=== PATIENT | female | born 1955 | race Caucasian/White ===

== ENCOUNTER 2016-10-02 11:47 | Inpatient (IN) | payer OTHER ==
[~2016-10-02] VITALS: Ht 152.4 cm; Wt 64.6 kg
--- NOTE | ~2016-10-02 | PR ---
[place], [place] PROGRESS NOTE [id number] UN[facility] #: [id number] ROOM: 312 DOCTOR: JAY NERI MD BIRTHDATE: [birth year] DOS: 10/04/2016 CHIEF COMPLAINT: "I need something for sleep, I need my Xanax back." SUMMARY OF THE VISIT: The patient was interviewed in the dining area. She seems very loud and boisterous, very intrusive. She was fixated; however, not sleeping well last night and wanting something to help her sleep and also wanting some type of benzo back. She first requested Xanax and then later Klonopin. I did educate her on the use of benzo sedatives mixed with opiates in the high risk of morbidity and mortality from them and stated that I would not ever do this and that we would have to find alternatives. MENTAL STATUS: She is alert and oriented with some gaps. Mood does seem to be labile and inappropriate. There is a mixture of both some depressive symptoms as well as some manic symptoms, she is allowed and intrusive, there is no auditory or visual hallucinations. No delusions are voiced. No paranoia seems present. Memory has some mild gaps, but otherwise she is fully intact. PLAN: I will start her on Vistaril 50 mg 3 times daily for antianxiety purposes, also start her on Elavil 50 mg at bedtime as an antidepressant and also for something that will augment pain control. Her screening vitamin D level upon admission was subtherapeutic at 20, so I will start her on vitamin D 50,000 international units weekly. Given her lengthy history of polysubstance use. I will check a serum ammonia level to make certain that she is not sustained liver damage also check a phenobarb level. I am questioning whether or not we can simplify her overall drug regimen and discontinue her phenobarb and/or Lyrica. She takes a plethora of medications, many of which seem subtherapeutic and notes indicate that she does tend to doctor shop and pharmacy shop the more we can simplify things the better off, she will be. We will continue to engage her in individual and cortes milieu activity with the ultimate plan to return home when psychiatrically stable. JAY NERI MD CM:MEGAN [phone] JAY NERI MD 11/08/16 1507 interface
--- NOTE | ~2016-10-02 | PR ---
[place], [place] PROGRESS NOTE NAME: COLT GAITAN UNIT #: [id number] ROOM: 312 DOCTOR: JAY NERI MD BIRTHDATE: [birth year] DOS: 10/05/2016 ADDENDUM Above note reviewed. Agree with observations, recommendations, and overall treatment plan. JAY NERI MD CM:PNTRANS [id number] JAY NERI MD 11/26/16 1428 interface
--- NOTE | ~2016-10-02 | DS ---
[place], [place] DISCHARGE SUMMARY NAME: COLT GAITAN UNIT #: [id number] ROOM: 312 DOCTOR: MARBELLA BARRIGA NARAYAN BIRTHDATE: [birth year] DOS: 10/06/2016 HISTORY OF PRESENT ILLNESS: This is a 61-year-old female with past admissions to the Behavioral Health Unit presented to the Emergency Room complaining of suicidal ideation. She got into an argument with her and threatened to kill herself. Police were called. She threatened to kill herself by holding a knife to her abdomen and that she threatened to kill them. When she was here, she denied the whole thing. She has a history of bipolar. Initially stated that she was a patient of Dr. Hoang; however, she goes to [facility]. She was noncompliant with followup with Dr. Hoang's office. PAST MEDICAL HISTORY: Arthritis, hypertension, chronic pain, diabetes, scoliosis. MENTAL STATUS: She is alert and oriented to person, place, approximate time. Mood euthymic. Affect is appropriate. No auditory or visual hallucinations, delusions, paranoia, arabella or hypomania. Overall, memory is intact. The patient refused to sign herself in today. She completed her 72-hour hold, and she is asking to go home. Her only caveat was that she would stay longer, we will need to help out with pain, give her pain meds and the benzos. I advised her that I could not do that. HOSPITAL COURSE: We tried to clean up her medications as much as possible. I got rid of her benzos since she is on narcotics. Dr. Hoang got rid of her phenobarbital. We are trying to simplify her medications as much as possible. The patient was definitely drug seeking while she was here as far as narcotics and benzos. Since the patient does not want to sign herself in, we will be discharging her home with some medication adjustments. We reviewed them with her. She should follow up with her primary care provider [facility] followup. We are recommending that they not combine benzos with her narcotics since this is contributing to some of her issues as well. [place], [place] DISCHARGE SUMMARY NAME: COLT GAITAN UNIT #: [id number] ROOM: 312 DOCTOR: MARBELLA BARRIGA BIRTHDATE: [birth year] NARAYAN BARRIGA CNP CM:ROBERTA [phone] [id number] MARBELLA BARRIGA 10/06/16 0902 interface
--- NOTE | ~2016-10-02 | PR ---
[place], [place] PROGRESS NOTE NAME: COLT GAITAN UNIT #: [id number] ROOM: 312 DOCTOR: SEVERINO NOGUEIRA DO BIRTHDATE: [birth year] DOS: 10/05/2016 CHIEF COMPLAINT: "I slept better." SUMMARY OF VISIT: The patient was interviewed in the dining room while the patient was eating breakfast. The patient states that she did sleep a lot better; however, she continues to state that she still has some hip pain and buttock pain. MENTAL STATUS: The patient is alert, oriented with some gaps. Mood does seem to trend towards euthymia. There are no auditory or visual hallucinations. No delusions are voiced. No paranoia seems present. Memory has some mild gaps but otherwise fully intact. PLAN: We will increase the Elavil to 100 mg at night. We will discontinue phenobarbital. Levels are subtherapeutic at 6.1. We will also give Zostrix cream t.i.d. for current hip pain. We will continue to engage in individual and cortes activities with the ultimate plan to return home when psychiatrically stable. SEVERINO NOGUEIRA DO JAY NERI MD CM:MEGAN [id number] SEVERINO NOGUEIRA DO 10/05/16 1030 interface
--- NOTE | ~2016-10-02 | WRIGHTHP ---
[place], [place] PATIENT HISTORY AND PHYSICAL EXAM [id number] UNIT #: [id number] ROOM: 312 DOCTOR: MARBELLA BARRIGA BIRTHDATE: [birth year] DOS: 10/03/2016 HISTORY OF PRESENT ILLNESS: This is a 61-year-old female who has had past admissions to the Behavioral Health Unit that presented to the Emergency Room complaining of a suicidal ideation. Apparently, she got into an argument with her . The police were called, she threatened to kill herself and when the police arrived, they found her holding the knife to her abdomen. She was brought to the Emergency Room. She has got a history of bipolar disorder. She stated in the Emergency Room apparently that she sees Dr. Hoang, this is not true, she was noncompliant with her followups with our office. She currently sees, I believe, a nurse practitioner at the [facility]. PAST MEDICAL HISTORY: She has got arthritis, hypertension, diabetes and scoliosis. Diagnosis, acute exacerbation of bipolar depression and I also believe that there is some type of narcotic issues going on with her right now. MENTAL STATUS: She is alert and oriented to person, place, approximate time. Mood is appropriate. There is no arabella or hypomania. Affect is appropriate, but aggressive. She is very manipulative. She tried to get more pain meds out of me, she tried to tell me that her nurse practitioner at the counseling center has her on Klonopin, Ativan. When I questioned the interactions with the narcotics and the new regulations that were not to combine them, she was aware of this and stated that while my nurse practitioner knows I am on it, she suggested that I not take it, but she goes ahead and gives it to me. We did reach out to the pharmacy, who stated that she does not have an active script for Klonopin or Ativan. It should also be noted that the patient told the nurses that they would not have any problem with her as long as we gave her what she wanted. There is definitely a behavior component to this lady. PLAN: I am going to get the patient back on her Depakote, she stopped taking it. She says she prefers Prozac; however, Prozac is not part of her list of meds we got from the pharmacy. We will reach out to the counseling center tomorrow and have a conversation with them. She is on Trileptal, codeine, phenobarbital and Lyrica. I am not making any Ativan available to her or Klonopin. Benzos are contraindicated with her narcotics and as far as I can tell through the pharmacy records, she was not getting Klonopin, she may have some old scripts. It should also be noted that she came with a suitcase filled with like 27 bottles worth of medications. She does state that she will take the Prozac, but most of the time she does not take the Depakote. I am going to go ahead and keep her on Depakote, increase the dosage. I talked to her about it how I felt that it would help better with her bipolar, her mood swings, her depression, that I would put her on 250 mg t.i.d., get her therapeutic and then we can look at adjusting the dose if she becomes too somnolent. The patient on multiple occasions asked me to increase or give her more narcotics, I advised her no, I made it very clear that those medications would not be coming from me. We will go ahead and try to engage in individual and cortes milieu therapy. I do want to reach out and have a conversation with the counseling center tomorrow and get some clarifications as far as who are all is prescribing her [place], [place] PATIENT HISTORY AND PHYSICAL EXAM NAME: COLT GAITAN UNIT #: [id number] ROOM: 312 DOCTOR: MARBELLA BARRIGA BIRTHDATE: [birth year] medications, it looks like she has multiple doctors giving her meds between the counseling center, chiropractor, and primary care doctor. If the patient's pain is this bad, may be a pain clinic is her best choice and everybody else hands off, so that they can get the pain under control without dealing with some of the symptoms that I am seeing right now. We will continue to try to engage in individual and cortes milieu therapy. Plan to discharge once stable. NARAYAN BARRIGA CNP CM:HISPHYS:PATIENT HISTORY AND PHYSICAL EXAMINATION [phone] MARBELLA BARRIGA 10/03/16 1523 interface
[~2016-10-02 11:47] MED LIST: ACETAMINOPHEN &1 TA1 PO; AMBIEN5 MG PO; ANUCORT-HC25 MG RC; APA PO; ASPIRIN80 MG PO; ATARAX25 MG PO; BACTRIM DS 8001 TA1 PO; BENTYL10 MG PO; BENTYL20 MG PO; CALCIUM CARBON600 M2 PO; CARAFATE1 G1 PO; CARAFATE1 GM/10 ML PO; CLONAZEPAM0.5 M2 PO; CYCLOBENZAPRINE10 MG PO; DAYPRO600 M1 PO; DIVALPROEX SOD500 MG PO; DOXYCYCLINE100 M3 PO; EFFEXOR37.5 MG PO; EPIPEN JR 20.5 MG/ML MR; FIORICET 325 MG1 TAB PO; FLEXERIL10 MG PO; FLUOXETINE HYDR20 M1 PO; FLUOXETINE20 MG PO; GEODON40 MG PO; HYDROCODONE; HYDROCODONE BIT1 T11 PO; HYDROCODONE PO; IBUPROFEN600 MG PO; KLONOPIN WAFER0.5 MG PO; KLONOPIN0.5 MG PO; KLONOPIN2 MG PO; LEVOTHYROXIN0.025 MG PO; LITHIUM CARB300 MG PO; LOMOTIL 0.025 M1 TA1 PO; LORAZEPAM1 MG PO; MEDROL DOSEPAK4 MG PO; MIRTAZAPINE15 M2 PO; MOTRIN800 MG PO; MS CONTIN60 MG PO; NEURONTIN300 MG PO; NEXIUM40 MG PO; NORCO 325 MG-101 TAB PO; OXCARBAZEPINE600 MG PO; Ondansetron4 MG PO; PHENOBARBITAL60 MG PO; PREDNISONE5 MG PO; PRILOSEC20 M2 PO; PRILOSEC20 MG PO; PROZAC10 MG PO; RELAFEN500 MG PO; RESTORIL15 MG PO; TEMAZEPAM15 M1 PO; TRAMADOL HCL50 MG PO; TRAZADONE HYDR100 MG PO; TRAZODONE HCL50 MG PO; TRAZODONE100 MG PO; TRILEPTAL600 MG PO; TRILIPIX45 M1 PO; TYLENOL ES500 MG PO; TYLENOL W/ CODEI5 ML PO; TYLENOL W/CODEI1 TA2 PO; TYLENOL W/CODEI1 TA7 PO; TYLENOL325 M1 PO; ULTRAM50 MG PO; VALIUM5 MG PO; VISTARIL25 M1; VISTARIL25 M1 PO; VISTARIL25 MG PO; VITAMINS; ZANTAC 150150 MG PO; ZOFRAN ODT4 MG SL; ZOLPIDEM TARTRAT5 MG PO
[2016-10-02 11:52] VITALS: BP 118/68
[2016-10-02] MEDS ORDERED: Depakote250 MG PO ×2 (11:56→17:57)
[2016-10-02] MEDS ORDERED: DICYCLOMINE HCL20 MG PO (11:57)
[2016-10-02] MEDS ORDERED: AMITIZA24 MCG PO (11:58)
[2016-10-02] MEDS ORDERED: ASPIRIN81 M1 PO (12:01)
[2016-10-02] MEDS ORDERED: OXCARBAZEPINE600 MG PO (12:02)
[2016-10-02] MEDS ORDERED: PRENATAL1 TA3 PO (12:02)
[2016-10-02] MEDS ORDERED: IBUPROFEN600 MG PO (12:06)
[2016-10-02] MEDS ORDERED: Fioricet 325 MG1 TAB PO (12:07)
[2016-10-02 12:30] LABS: BASO # 0.1 10*3/uL (0.0-0.1); BASO % 0.8 % (0.0-1.0); EOS # 0.5 10*3/uL (0.0-0.4); EOS % 5.5 % (1.0-4.0); HEMATOCRIT 37.3 % (37.0-47.0); HEMOGLOBIN 12.2 g/dl (12.0-16.0); LYMPH # 3.2 10*3/uL (1.3-4.4); LYMPH % 36.3 % (27.0-41.0); MEAN CELL VOLUME 94.4 fl (81.0-99.0); MEAN CORPUSCULAR HGB 30.9 pg (27.0-31.0); MEAN CORPUSCULAR HGB CONC 32.7 g/dl (33.0-37.0); MEAN PLATELET VOLUME 9.3 fl (9.6-12.3); MONO # 0.7 10*3/uL (0.1-1.0); MONO % 8.5 % (3.0-9.0); NEUT # 4.2 10*3/uL (2.3-7.9); NEUT % 48.4 % (47.0-73.0); PLATELET COUNT AUTOMATED 279 10*3/uL (130-400); RED BLOOD COUNT 3.95 10*6/uL (4.10-5.10); RED CELL DISTRI WIDTH 12.9 % (0-14.5); WHITE BLOOD COUNT 8.8 10*3/uL (4.8-10.8)
[2016-10-02 12:45] LABS: URINE AMPHETAMINES < 1000 (1000ng/ml); URINE BARBITURATES > 200 (200ng/ml); URINE COCAINE < 300 (300ng/ml)
[2016-10-02 12:50] LABS: ALBUMIN 3.3 gm/dl (3.1-4.5); ALKALINE PHOSPHATASE 71 U/L (45-117); BILIRUBIN, DIRECT < 0.1 mg/dL (0.0-0.2); BILIRUBIN, TOTAL 0.2 mg/dl (0.2-1.0); BUN 22 mg/dl (7-24); CARBON DIOXIDE 28 mmol/L (21-32); CHLORIDE 108 mmol/L (98-107); EST GLOM FILT AFRICAN AMERICAN > 60 ml/min; GLUCOSE 90 mg/dL (65-99); POTASSIUM 4.4 mmol/L (3.5-5.1); SGOT/AST 11 IU/L (3-35); SGPT/ALT 17 U/L (12-78); SODIUM 142 mmol/L (136-145); TOTAL PROTEIN 6.4 gm/dL (6.4-8.2)
[2016-10-02] MEDS ORDERED: LYRICA50 M1 PO (17:48)
[2016-10-02] MEDS ORDERED: BENADRYL25 M2 PO (17:50)
[2016-10-02] MEDS ORDERED: RANITIDINE HCL300 M2 PO (17:51)
[2016-10-02] MEDS ORDERED: PHENOBARBITAL16.2 MG PO (17:52)
[2016-10-02] MEDS ORDERED: TYLENOL WITH CO1 TA1 PO (17:53)
[2016-10-02] MEDS ORDERED: GEODON20 MG IM (17:58)
[2016-10-02 18:25] VITALS: BP 117/70
[2016-10-02 19:39] VITALS: BP 110/62
[2016-10-02 19:50] LABS: HEMOGLOBIN A1c 5.5 % (4.8-5.6)
[2016-10-02 20:00] VITALS: BP 110/62
[2016-10-03 07:50] VITALS: BP 122/62
[2016-10-03 07:55] VITALS: BP 122/62
[2016-10-03 16:49] LABS: BILIRUBIN NEGATIVE (NEGATIVE); BLOOD NEGATIVE (NEGATIVE); CLARITY SL CLOUDY (CLEAR); COLOR YELLOW (YELLOW); GLUCOSE NEGATIVE (NEGATIVE); KETONE TRACE (NEGATIVE); LEUKO ESTERASE TRACE (NEGATIVE); NITRITE NEGATIVE (NEGATIVE); PH 5.5 (5.0-9.0); PROTEIN NEGATIVE (NEGATIVE)
[2016-10-03 16:57] LABS: BACTERIA 1+; URINE REFLEX COMMENT YES (NO)
[2016-10-03 19:41] VITALS: BP 133/71
[2016-10-03 20:00] VITALS: BP 133/71
[2016-10-04 08:13] VITALS: BP 119/55
[2016-10-04 08:45] VITALS: BP 119/55
[2016-10-04 20:00] VITALS: BP 112/58
[2016-10-04 20:07] VITALS: BP 112/58
[2016-10-05 07:45] VITALS: BP 118/62
[2016-10-05 08:00] VITALS: BP 118/62
[2016-10-05 20:00] VITALS: BP 104/62
[2016-10-06] MEDS ORDERED: ATARAX,VISTARIL50 MG PO (08:23)
[2016-10-06] MEDS ORDERED: AMITRIPTYLINE50 MG PO (08:23)
[2016-10-06] MEDS ORDERED: VITAMIN D50000 I3 PO (08:23)
[2016-10-06 08:26] VITALS: BP 103/61
== END 2016-10-06 16:00 | disposition home or self-care (01) | DRG 885 ==
LOC: ED 11:47 → 3N 16:20
PROVIDERS: Emergency Medicine; Psychiatry & Neurology Psychiatry
DX: F29 Unspecified psychosis not due to a substance or known physiological condition (principal); F33.3 Major depressive disorder, recurrent, severe with psychotic symptoms; G62.9 Polyneuropathy, unspecified; M41.9 Scoliosis, unspecified; E11.9 Type 2 diabetes mellitus without complications; G89.29 Other chronic pain; M54.30 Sciatica, unspecified side; E03.9 Hypothyroidism, unspecified; E55.9 Vitamin D deficiency, unspecified; R51 Headache; M19.90 Unspecified osteoarthritis, unspecified site; M79.2 Neuralgia and neuritis, unspecified

== ENCOUNTER 2017-03-30 07:04 | Inpatient (IN) | payer OTHER ==
[~2017-03-30] VITALS: Ht 152.4 cm; Wt 65.4 kg
[2017-03-30 07:04] VITALS: BP 132/84
[~2017-03-30 07:04] MED LIST changes: +AMITIZA24 MCG PO; +AMITRIPTYLINE50 MG PO; +ASPIRIN81 M1 PO; +ATARAX,VISTARIL50 MG PO; +BENADRYL25 M2 PO; +DICYCLOMINE HCL20 MG PO; +Depakote250 MG PO; +Fioricet 325 MG1 TAB PO; +GEODON20 MG IM; +LYRICA50 M1 PO; +PHENOBARBITAL16.2 MG PO; +PRENATAL1 TA3 PO; +RANITIDINE HCL300 M2 PO; +TYLENOL WITH CO1 TA1 PO; +VITAMIN D50000 I3 PO
[2017-03-30 07:56] LABS: BASO # 0.1 10*3/uL (0.0-0.1); BASO % 0.9 % (0.0-1.0); EOS # 0.5 10*3/uL (0.0-0.4); EOS % 8.7 % (1.0-4.0); HEMATOCRIT 38.9 % (37.0-47.0); HEMOGLOBIN 13.1 g/dl (12.0-16.0); LYMPH # 2.2 10*3/uL (1.3-4.4); LYMPH % 41.1 % (27.0-41.0); MEAN CELL VOLUME 89.2 fl (81.0-99.0); MEAN CORPUSCULAR HGB CONC 33.7 g/dl (33.0-37.0); MEAN PLATELET VOLUME 9.2 fl (9.6-12.3); MONO # 0.4 10*3/uL (0.1-1.0); MONO % 7.5 % (3.0-9.0); NEUT # 2.2 10*3/uL (2.3-7.9); NEUT % 41.2 % (47.0-73.0); PLATELET COUNT AUTOMATED 298 10*3/uL (130-400); RED BLOOD COUNT 4.36 10*6/uL (4.10-5.10); RED CELL DISTRI WIDTH 12.3 % (0-14.5); WHITE BLOOD COUNT 5.3 10*3/uL (4.8-10.8)
[2017-03-30 08:14] LABS: ALBUMIN 3.5 gm/dl (3.1-4.5); ALKALINE PHOSPHATASE 155 U/L (45-117); BILIRUBIN, TOTAL 0.2 mg/dl (0.2-1.0); BUN 19 mg/dl (7-24); C-REACTIVE PROTEIN 0.38 MG/DL (0-0.3); CARBON DIOXIDE 24 mmol/L (21-32); CHLORIDE 104 mmol/L (98-107); EST GLOM FILT AFRICAN AMERICAN > 60 ml/min; GLUCOSE 107 mg/dL (65-99); POTASSIUM 3.5 mmol/L (3.5-5.1); SGOT/AST 13 IU/L (3-35); SGPT/ALT 18 U/L (12-78); SODIUM 140 mmol/L (136-145); TOTAL PROTEIN 7.2 gm/dL (6.4-8.2)
[2017-03-30 08:16] LABS: TROPONIN I < 0.015 ng/ml (<0.045)
[2017-03-30 08:19] LABS: BILIRUBIN 1+ (NEGATIVE); BLOOD NEGATIVE (NEGATIVE); CLARITY SL CLOUDY (CLEAR); COLOR YELLOW (YELLOW); GLUCOSE NEGATIVE (NEGATIVE); KETONE 1+ (NEGATIVE); LEUKO ESTERASE NEGATIVE (NEGATIVE); NITRITE NEGATIVE (NEGATIVE); PROTEIN TRACE (NEGATIVE); SPECIFIC GRAVITY 1.025 (1.005-1.030); UROBILINOGEN 0.2 E.U./dl (0.2-1.0)
[2017-03-30 08:27] LABS: BACTERIA TRACE; RBC 0-2 rbc/hpf (0-2); WBC 0-2 wbc/hpf (0-5)
[2017-03-30 08:28] LABS: MUCOUS TRACE
[2017-03-30 08:29] LABS: URINE REFLEX COMMENT NO (NO)
[2017-03-30] MEDS ORDERED: RESTORIL15 MG PO (10:05)
[2017-03-30] MEDS ORDERED: Fioricet 325 MG1 TAB PO (10:05)
[2017-03-30 10:25] VITALS: BP 121/87
[2017-03-30] MEDS ORDERED: AMITIZA8 MCG PO (10:26)
[2017-03-30] MEDS ORDERED: DICYCLOMINE HCL20 MG PO (10:26)
[2017-03-30] MEDS ORDERED: OMEPRAZOLE40 MG PO (10:31)
[2017-03-30] MEDS ORDERED: PHENOBARBITAL32.4 M2 PO (10:32)
[2017-03-30] MEDS ORDERED: DIPHENOXYLATE/A1 TA1 PO (10:37)
[2017-03-30] MEDS ORDERED: LEVOTHYROXIN0.025 M1 PO (10:37)
[2017-03-30 12:00] VITALS: BP 157/73
[2017-03-30 16:00] VITALS: BP 152/83
[2017-03-30 20:00] VITALS: BP 159/72
[2017-03-31] VITALS: BP 114/63
[2017-03-31 06:43] LABS: BASO # 0.1 10*3/uL (0.0-0.1); BASO % 1.1 % (0.0-1.0); EOS # 0.2 10*3/uL (0.0-0.4); EOS % 5.2 % (1.0-4.0); HEMATOCRIT 33.6 % (37.0-47.0); LYMPH # 1.8 10*3/uL (1.3-4.4); LYMPH % 41.5 % (27.0-41.0); MEAN CELL VOLUME 90.8 fl (81.0-99.0); MEAN CORPUSCULAR HGB 29.5 pg (27.0-31.0); MEAN CORPUSCULAR HGB CONC 32.4 g/dl (33.0-37.0); MONO # 0.5 10*3/uL (0.1-1.0); MONO % 11.5 % (3.0-9.0); NEUT # 1.8 10*3/uL (2.3-7.9); NEUT % 40.2 % (47.0-73.0); PLATELET COUNT AUTOMATED 242 10*3/uL (130-400); RED CELL DISTRI WIDTH 12.4 % (0-14.5); WHITE BLOOD COUNT 4.4 10*3/uL (4.8-10.8)
[2017-03-31 06:49] LABS: HEMOGLOBIN 10.9 g/dl (12.0-16.0)
[2017-03-31 07:00] LABS: HEMOGLOBIN A1c 5.5 % (4.8-5.6)
[2017-03-31 07:18] LABS: ALBUMIN 2.9 gm/dl (3.1-4.5); BILIRUBIN, TOTAL 0.2 mg/dl (0.2-1.0); CARBON DIOXIDE 25 mmol/L (21-32); CHLORIDE 110 mmol/L (98-107); CHOLESTEROL 175 mg/dL (<200); EST GLOM FILT AFRICAN AMERICAN > 60 ml/min; GLUCOSE 105 mg/dL (65-99); MAGNESIUM 1.8 mg/dL (1.5-2.1); PHOSPHOROUS 1.8 mg/dL (2.5-4.9); POTASSIUM 3.4 mmol/L (3.5-5.1); SGOT/AST 8 IU/L (3-35); SGPT/ALT 14 U/L (12-78); SODIUM 143 mmol/L (136-145); TRIGLYCERIDES 157 mg/dl (<150); VLDL CHOLESTEROL 31 mg/dL (6-40)
[2017-03-31 07:24] LABS: ALKALINE PHOSPHATASE 121 U/L (45-117); HDL CHOLESTEROL 52 mg/dl (40-60); LDL CHOLESTEROL 92 mg/dL (9-159); THYROID STIM HORMONE (HS) 0.702 uIU/ml (0.358-4.75); TOTAL PROTEIN 5.9 gm/dL (6.4-8.2)
[2017-03-31 07:29] LABS: BUN 7 mg/dl (7-24)
[2017-03-31 07:48] LABS: FOLIC ACID 19.52 ng/mL (>5.38); VITAMIN D, 25-HYDROXY 75.8 ng/mL (30-100)
[2017-03-31 08:00] VITALS: BP 125/57
[2017-03-31 12:00] VITALS: BP 111/70
[2017-03-31 16:00] VITALS: BP 121/59
[2017-03-31 20:00] VITALS: BP 128/58
[2017-04-01] VITALS: BP 125/55
[2017-04-01 07:19] LABS: BUN 3 mg/dl (7-24); CARBON DIOXIDE 28 mmol/L (21-32); CHLORIDE 109 mmol/L (98-107); EST GLOM FILT AFRICAN AMERICAN > 60 ml/min; GLUCOSE 98 mg/dL (65-99); POTASSIUM 3.1 mmol/L (3.5-5.1); SODIUM 144 mmol/L (136-145)
[2017-04-01 08:00] VITALS: BP 116/60
[2017-04-01 12:00] VITALS: BP 126/55
[2017-04-01 16:00] VITALS: BP 114/47
[2017-04-01 20:00] VITALS: BP 129/59
[2017-04-02] VITALS: BP 132/66
[2017-04-02 06:46] LABS: BASO # 0.1 10*3/uL (0.0-0.1); BASO % 0.9 % (0.0-1.0); EOS # 0.3 10*3/uL (0.0-0.4); EOS % 4.9 % (1.0-4.0); HEMATOCRIT 32.7 % (37.0-47.0); HEMOGLOBIN 10.9 g/dl (12.0-16.0); LYMPH # 2.5 10*3/uL (1.3-4.4); LYMPH % 45.2 % (27.0-41.0); MEAN CELL VOLUME 90.6 fl (81.0-99.0); MEAN CORPUSCULAR HGB 30.2 pg (27.0-31.0); MEAN CORPUSCULAR HGB CONC 33.3 g/dl (33.0-37.0); MEAN PLATELET VOLUME 9.1 fl (9.6-12.3); MONO # 0.5 10*3/uL (0.1-1.0); MONO % 9.5 % (3.0-9.0); NEUT # 2.1 10*3/uL (2.3-7.9); PLATELET COUNT AUTOMATED 253 10*3/uL (130-400); RED BLOOD COUNT 3.61 10*6/uL (4.10-5.10); RED CELL DISTRI WIDTH 12.6 % (0-14.5); WHITE BLOOD COUNT 5.5 10*3/uL (4.8-10.8)
[2017-04-02 07:19] LABS: BUN 3 mg/dl (7-24); CARBON DIOXIDE 27 mmol/L (21-32); CHLORIDE 108 mmol/L (98-107); EST GLOM FILT AFRICAN AMERICAN > 60 ml/min; GLUCOSE 100 mg/dL (65-99); POTASSIUM 3.6 mmol/L (3.5-5.1); SODIUM 142 mmol/L (136-145)
[2017-04-02 08:00] VITALS: BP 134/64
[2017-04-02 12:00] VITALS: BP 115/53
[2017-04-02 16:00] VITALS: BP 135/73
[2017-04-02 20:00] VITALS: BP 137/81
[2017-04-03] VITALS: BP 130/64; BP 135/80
[2017-04-03 04:00] VITALS: BP 130/64
[2017-04-03 06:33] LABS: BASO # 0.1 10*3/uL (0.0-0.1); BASO % 0.9 % (0.0-1.0); EOS # 0.3 10*3/uL (0.0-0.4); EOS % 4.2 % (1.0-4.0); HEMATOCRIT 34.8 % (37.0-47.0); HEMOGLOBIN 11.6 g/dl (12.0-16.0); LYMPH # 2.5 10*3/uL (1.3-4.4); LYMPH % 36.6 % (27.0-41.0); MEAN CORPUSCULAR HGB 29.7 pg (27.0-31.0); MEAN CORPUSCULAR HGB CONC 33.3 g/dl (33.0-37.0); MEAN PLATELET VOLUME 9.6 fl (9.6-12.3); MONO # 0.7 10*3/uL (0.1-1.0); MONO % 10.4 % (3.0-9.0); NEUT # 3.3 10*3/uL (2.3-7.9); NEUT % 47.6 % (47.0-73.0); PLATELET COUNT AUTOMATED 280 10*3/uL (130-400); RED BLOOD COUNT 3.91 10*6/uL (4.10-5.10); RED CELL DISTRI WIDTH 12.7 % (0-14.5); WHITE BLOOD COUNT 6.9 10*3/uL (4.8-10.8)
[2017-04-03 07:00] LABS: ALKALINE PHOSPHATASE 132 U/L (45-117); BILIRUBIN, TOTAL 0.2 mg/dl (0.2-1.0); BUN 3 mg/dl (7-24); CARBON DIOXIDE 29 mmol/L (21-32); CHLORIDE 107 mmol/L (98-107); EST GLOM FILT AFRICAN AMERICAN > 60 ml/min; GLUCOSE 102 mg/dL (65-99); POTASSIUM 3.3 mmol/L (3.5-5.1); SGOT/AST 14 IU/L (3-35); SGPT/ALT 22 U/L (12-78); SODIUM 143 mmol/L (136-145); TOTAL PROTEIN 6.5 gm/dL (6.4-8.2)
[2017-04-03 08:00] VITALS: BP 136/78
[2017-04-03] MEDS ORDERED: MILK OF MA400 MG/51 PO (10:43)
== END 2017-04-03 11:07 | disposition home or self-care (01) | DRG 392 ==
LOC: ED 07:04 → 5E 09:29 → EDHOLD 09:29 → 5E 10:01
PROVIDERS: Family Medicine; Hospitalist; Internal Medicine; Student in an Organized Health Care Education/Training Program
DX: A08.4 Viral intestinal infection, unspecified (principal); E44.0 Moderate protein-calorie malnutrition; F50.2 Bulimia nervosa; E87.8 Other disorders of electrolyte and fluid balance, not elsewhere classified; G62.9 Polyneuropathy, unspecified; M41.9 Scoliosis, unspecified; E83.39 Other disorders of phosphorus metabolism; K25.7 Chronic gastric ulcer without hemorrhage or perforation; M54.31 Sciatica, right side; M51.27 Other intervertebral disc displacement, lumbosacral region; F90.9 Attention-deficit hyperactivity disorder, unspecified type; K64.9 Unspecified hemorrhoids; R31.9 Hematuria, unspecified; G40.909 Epilepsy, unspecified, not intractable, without status epilepticus; E87.6 Hypokalemia; E86.0 Dehydration; K22.70 Barrett's esophagus without dysplasia; K44.9 Diaphragmatic hernia without obstruction or gangrene; R82.4 Acetonuria; E03.9 Hypothyroidism, unspecified; G89.29 Other chronic pain; M19.90 Unspecified osteoarthritis, unspecified site; F31.9 Bipolar disorder, unspecified; F60.3 Borderline personality disorder; F41.9 Anxiety disorder, unspecified; F17.210 Nicotine dependence, cigarettes, uncomplicated; D64.9 Anemia, unspecified; K59.00 Constipation, unspecified; Z98.49 Cataract extraction status, unspecified eye; Z80.51 Family history of malignant neoplasm of kidney; Z88.0 Allergy status to penicillin; Z88.8 Allergy status to other drugs, medicaments and biological substances; Z91.030 Bee allergy status; Z79.1 Long term (current) use of non-steroidal anti-inflammatories (NSAID); Z79.899 Other long term (current) drug therapy; Z79.82 Long term (current) use of aspirin; Z68.28 Body mass index [BMI] 28.0-28.9, adult

== ENCOUNTER → 2017-04-26 | Emergency (ER) | payer OTHER ==
[~2017-04-26] VITALS: Ht 165.1 cm; Wt 65.8 kg
[~2017-04-26] MED LIST changes: +AMITIZA8 MCG PO; +DIPHENOXYLATE/A1 TA1 PO; +LEVOTHYROXIN0.025 M1 PO; +MILK OF MA400 MG/51 PO; +OMEPRAZOLE40 MG PO; +PHENOBARBITAL32.4 M2 PO
[2017-04-26 09:54] LABS: BASO # 0.1 10*3/uL (0.0-0.1); BASO % 0.9 % (0.0-1.0); EOS # 0.2 10*3/uL (0.0-0.4); EOS % 2.6 % (1.0-4.0); HEMATOCRIT 41.2 % (37.0-47.0); HEMOGLOBIN 13.7 g/dl (12.0-16.0); LYMPH % 40.1 % (27.0-41.0); MEAN CORPUSCULAR HGB 29.9 pg (27.0-31.0); MEAN CORPUSCULAR HGB CONC 33.3 g/dl (33.0-37.0); MEAN PLATELET VOLUME 9.6 fl (9.6-12.3); MONO # 0.6 10*3/uL (0.1-1.0); MONO % 7.4 % (3.0-9.0); NEUT # 3.6 10*3/uL (2.3-7.9); NEUT % 48.5 % (47.0-73.0); PLATELET COUNT AUTOMATED 311 10*3/uL (130-400); RED BLOOD COUNT 4.58 10*6/uL (4.10-5.10); RED CELL DISTRI WIDTH 12.8 % (0-14.5); WHITE BLOOD COUNT 7.4 10*3/uL (4.8-10.8)
[2017-04-26 10:09] LABS: ALBUMIN 3.9 gm/dl (3.1-4.5); ALKALINE PHOSPHATASE 141 U/L (45-117); BILIRUBIN, TOTAL 0.3 mg/dl (0.2-1.0); BUN 23 mg/dl (7-24); CARBON DIOXIDE 22 mmol/L (21-32); CHLORIDE 105 mmol/L (98-107); EST GLOM FILT AFRICAN AMERICAN > 60 ml/min; GLUCOSE 84 mg/dL (65-99); POTASSIUM 3.9 mmol/L (3.5-5.1); SGOT/AST 11 IU/L (3-35); SGPT/ALT 16 U/L (12-78); SODIUM 139 mmol/L (136-145); TOTAL PROTEIN 7.6 gm/dL (6.4-8.2)
[2017-04-26 10:44] LABS: BILIRUBIN 2+ (NEGATIVE); BLOOD NEGATIVE (NEGATIVE); CLARITY CLEAR (CLEAR); COLOR YELLOW (YELLOW); GLUCOSE NEGATIVE (NEGATIVE); KETONE 3+ (NEGATIVE); LEUKO ESTERASE NEGATIVE (NEGATIVE); NITRITE NEGATIVE (NEGATIVE); PROTEIN 2+ (NEGATIVE); SPECIFIC GRAVITY >= 1.030 (1.005-1.030)
[2017-04-26 10:52] LABS: URINE REFLEX COMMENT NO (NO)
== END ==
LOC: ED 09:31
PROVIDERS: Nurse Practitioner Family
DX: F31.9 Bipolar disorder, unspecified (principal); R11.2 Nausea with vomiting, unspecified; R10.13 Epigastric pain; R19.7 Diarrhea, unspecified; F17.210 Nicotine dependence, cigarettes, uncomplicated; Z91.030 Bee allergy status; Z88.0 Allergy status to penicillin; Z88.8 Allergy status to other drugs, medicaments and biological substances; Z79.899 Other long term (current) drug therapy; Z79.82 Long term (current) use of aspirin

== ENCOUNTER 2017-05-27 10:42 | Inpatient (IN) | payer OTHER ==
[~2017-05-27] VITALS: Ht 154.9 cm; Wt 61.2 kg
--- NOTE | ~2017-05-27 | DS ---
[place], [place] DISCHARGE SUMMARY NAME: COLT GAITAN [facility] #: [id number] UNIT #: [id number] ROOM: 314 DOCTOR: JAY NERI MD BIRTHDATE: [birth year] DOS: 05/30/2017 CHIEF COMPLAINT: "I am not really suicidal." HISTORY OF PRESENT ILLNESS: This is a 61-year-old white female who is well known to the [facility]. The patient presented to the emergency room at [facility] with the complaint of abdominal pain. She had gone to another emergency room hospital and was worked up for the pain and no cause for the pain or need for admission was found. She then came to [place] with the same complaint on the advice of a friend. Acute abdominal series was negative. She was then told that she was not going to be admitted and at that point in time and only after that, she states that she wanted to kill herself. She became angry and agitated while in the emergency room. She refused to give a urine sample and was threatening to leave and ultimately was pink slipped then by the emergency room physicians. After talking to the nurse practitioner in the emergency room, she did agree to give urine and was found to have 1+ bacteria and also tested positive for opiates, barbiturates and benzos. She was admitted to the [facility] to evaluate further organically and also to assess lethality. PAST MEDICAL HISTORY: Remarkable for allergies to BEE STINGS, PENICILLIN, COMPAZINE and PROPRANOLOL. SUMMARY OF HOSPITAL COURSE: The patient was admitted to the unit where immediately she began to demand being discharged. Her phoned frequently and demanded that she be discharged. Nurses continue to evaluate daily her level of depression and did not find any symptoms suggestive of depression nor did they find consistent thoughts of wanting to hurt herself or others. The patient convincingly throughout that time stated that she only said that because she was angry and voiced positive plans for the future and a desire to return home. On the day that I evaluated her, she reported that she was feeling good, was anxious to go back to counseling with Steph and also see Zena Morales. She was discharged then back home on . MENTAL STATUS AT DISCHARGE: The patient is alert and oriented to person, place, and time. Mood is euthymic. Affect appropriate. There are no symptoms of hypomania or arabella. There are no overt auditory or visual hallucinations. No delusions, no paranoia. There is no suicidality, homicidality or self-injurious thoughts voiced. Memory is intact. FINAL DIAGNOSES: Bipolar type 2 and borderline personality disorder. PLAN: The patient is discharged. Her aftercare has already been set up per her report. We will verify this and finalize. No scripts were sent as patient should have prescriptions from her outpatient provider present. [place], [place] DISCHARGE SUMMARY NAME: COLT GAITAN UNIT #: [id number] ROOM: [facility] DOCTOR: JAY NERI MD BIRTHDATE: [birth year] JAY NERI MD CM:DISCHARG [id number] JAY NERI MD 05/30/17 1627 interface
[2017-05-27 11:03] VITALS: BP 132/70
[2017-05-27 11:14] LABS: BASO # 0.1 10*3/uL (0.0-0.1); BASO % 0.8 % (0.0-1.0); EOS # 0.4 10*3/uL (0.0-0.4); EOS % 5.7 % (1.0-4.0); HEMATOCRIT 38.7 % (37.0-47.0); HEMOGLOBIN 12.8 g/dl (12.0-16.0); LYMPH % 45.9 % (27.0-41.0); MEAN CELL VOLUME 90.2 fl (81.0-99.0); MEAN CORPUSCULAR HGB 29.8 pg (27.0-31.0); MEAN CORPUSCULAR HGB CONC 33.1 g/dl (33.0-37.0); MEAN PLATELET VOLUME 9.4 fl (9.6-12.3); MONO # 0.6 10*3/uL (0.1-1.0); MONO % 8.9 % (3.0-9.0); NEUT # 2.5 10*3/uL (2.3-7.9); NEUT % 38.2 % (47.0-73.0); PLATELET COUNT AUTOMATED 243 10*3/uL (130-400); RED BLOOD COUNT 4.29 10*6/uL (4.10-5.10); WHITE BLOOD COUNT 6.5 10*3/uL (4.8-10.8)
[2017-05-27 11:24] LABS: ACT PARTIAL THROMBO TIME 25.7 SECONDS (20.8-31.5)
[2017-05-27 11:29] LABS: ALBUMIN 3.3 gm/dl (3.1-4.5); ALKALINE PHOSPHATASE 156 U/L (45-117); BUN 14 mg/dl (7-24); CHLORIDE 106 mmol/L (98-107); CREATININE 0.73 mg/dL (0.55-1.02); MAGNESIUM 1.7 mg/dL (1.5-2.1); POTASSIUM 3.4 mmol/L (3.5-5.1); SGOT/AST 12 IU/L (3-35); SGPT/ALT 17 U/L (12-78); SODIUM 138 mmol/L (136-145); TOTAL PROTEIN 7.1 gm/dL (6.4-8.2)
[2017-05-27 11:30] LABS: TROPONIN I < 0.015 ng/ml (<0.045)
--- NOTE | 2017-05-27 12:05 | NUR ---
PT IN ROOM UPSET AND CRYING. PT TELLS ME THAT SHE WANTS TO LEAVE. SHE ALSO TELLS MYSELF AND [place] GONCALVES-TECHNICAL PROPOSAL WRITER THAT SINCE WE CANT HELP HER AND CAN'T FIND ANYTHING WRONG WITH HER THAT SHE IS GOING TO KILL HERSELF. I INFORMED HER THAT SINCE SHE IS FEELING SUICIDAL AT THIS TIME THAT I CAN NOT LET HER LEAVE. PT DEMANDING TO LEAVE AND SIGN HERSELF OUT. I LEAVE THE ROOM AND PT CALLS HER DOCTOR FARRUKH MCKINNEY ON THE PHONE. PT REFUSES EXHIBITION ORGANISER AND ALSO REFUSES IV FLUIDS TO BE RE-CONNECTED. PT REMAINS TEARFUL AND UPSET IN ROOM, MAKING SEVERAL PHONE CALLS.
[2017-05-27 12:40] LABS: ACETAMINOPHEN (TYLENOL) 2.7 ug/ml (10-30)
[2017-05-27 12:46] LABS: ETHYL ALCOHOL < 3.0 mg/dl (<3)
--- NOTE | 2017-05-27 12:56 | NUR ---
PT IN ROOM, SHUTS DOOR AND IS DRESSED IN HER STREET CLOTHES. SHE TELLS ME THAT SHE IS LEAVING AND GOING HOME. I TOLD HER THAT SHE CAN'T GO HOME BECAUSE SHE IS THREATENING TO KILL HERSELF. SHE SAYS TO ME "I DON'T REALLY FEEL THAT WAS I WAS JUST TELLING A LIE" I INFORM PATIENT THAT WE NEED A URINE SAMPLE BEFORE WE CAN CONTACT DR. NERI. SHE REFUSES THIS INITIALLY AND SAYS THAT SHE WILL CALL HE BROTHER WHO IS A SECURITY ASSESSOR. SHE CALLS THE STAFF HERE IDIOTS. AFTER SPEAKING WITH DIRECTOR OF ER PATIENT IS MORE CALM AND COOPERATIVE... AMBULATORY TO BATHROOM TO PROVIDE SPECIMEN.
--- NOTE | 2017-05-27 13:18 | NUR ---
URINE SENT. PT MEDICATED PER EMAR FOR PAIN AND ANXIETY.
--- NOTE | 2017-05-27 13:30 | NUR ---
PT IN ROOM TRYING TO MAKE HERSELF VOMIT.
[2017-05-27 13:31] LABS: BILIRUBIN 1+ (NEGATIVE); BLOOD NEGATIVE (NEGATIVE); CLARITY CLOUDY (CLEAR); COLOR YELLOW (YELLOW); GLUCOSE NEGATIVE (NEGATIVE); KETONE TRACE (NEGATIVE); LEUKO ESTERASE NEGATIVE (NEGATIVE); NITRITE NEGATIVE (NEGATIVE); PH 5.5 (5.0-9.0); SPECIFIC GRAVITY >= 1.030 (1.005-1.030); UROBILINOGEN 0.2 E.U./dl (0.2-1.0)
[2017-05-27 13:38] LABS: URINE AMPHETAMINES < 1000 (1000ng/ml); URINE BARBITURATES > 200 (200ng/ml); URINE BENZODIAZEPINES > 200 (200ng/ml); URINE CANNABINOIDS (THC) < 50 (50ng/ml); URINE COCAINE < 300 (300ng/ml); URINE METHADONE < 300 (300ng/ml); URINE OPIATES > 300 (300ng/ml)
[2017-05-27 13:40] LABS: URINE PHENCYCLIDINE < 25 (25ng/ml)
[2017-05-27 13:43] LABS: BACTERIA 1+; EPITHELIAL CELLS 15-20; MUCOUS 1+
--- NOTE | 2017-05-27 13:51 | NUR ---
PT RESTING IN BED. APPEARS MUCH MORE CALM. AWAITING FINAL DISPOSITION FROM [facility].
--- NOTE | 2017-05-27 14:30 | NUR ---
PT SLEEPING IN BED. COMFORTABLE AND IN NO DISTRESS. HOLDING ORDERS ON MEDICATIONS PATIENT IS COMFORTABLE AND SLEEPING. [employer] BRANCH MANAGER AWARE. AWAITING Y ADMITTANCE.
[2017-05-27 15:14] VITALS: BP 149/68
--- NOTE | 2017-05-27 15:19 | NUR ---
PT BECOMING MORE AGITATED. [facility]HU CONTACTED
[2017-05-27 18:10] VITALS: BP 116/97
--- NOTE | 2017-05-27 18:13 | NUR ---
SPOKE WITH PHARMACIST AT [facility] VIA TELEPHONE REQUESTING INFORMATION ON MOST RECENT MEDICATIONS. THIS RN WAS PROVIDED WITH A LIST OF HOME MEDICATIONS AND WILL BE UPDATING MEDICATION REC WITH INFORMATION.
[2017-05-27] MEDS ORDERED: CYCLOBENZAPRINE5 M3 PO (18:25)
[2017-05-27] MEDS ORDERED: BENADRYL25 M2 PO (18:27)
--- NOTE | 2017-05-27 18:38 | NUR ---
DR. SOSA MADE AWARE OF CONSULT FOR MEDICAL MANAGEMENT VIA TELEPHONE.
--- NOTE | 2017-05-27 18:52 | NUR ---
PT ADMITTED TO UNIT FROM [facility] WITH REPORTEDLY SUICIDAL IDEATIONS. ADMISSION ORDERS RECIEVED BY [facility]. PATIENT IS AN INVOLUNTARY ADMISSION.
--- NOTE | 2017-05-27 19:58 | NUR ---
RECEIVED MESSAGE FROM MARINE MAMMAL TRAINER REGARDING CALLING AND REQUESTING A CALL FROM THE NURSE. THIS NURSE RETURNED CALL TO AND ASSURED PT'S THE DR HAS BEEN NOTIFIED THE PT IS HERE AND WE ARE WAITING UNTIL THE DR IS HERE TO ASSESS PT BEFORE HE WILL ORDER MEDICATIONS. ONCE MEDICATIONS HAVE BEEN ORDERED PHARMACY WILL BRING THEM TO US AND THEY WILL BE ADMINISTERED TO PT. UNTIL THAT TIME WE HAVE TO FOLLOW ADMISSION PROTOCOL. PT'S UNDERSTOOD THE PROTOCOL AND SHOWED CONCERN REGARDING THE PT GETTING HER SEIZURE MEDICATION AND STATED IF SHE FALLS AND HITS HER HEAD HE WILL HAVE A LAWSUIT AGAINST THE HOSPITAL. REASSURED PT SHE WILL GET MEDICATION WHEN WE ARE ABLE TO GIVE IT TO HER. PT VERBALIZED UNDERSTANDING OF ALL THE ABOVE.
[2017-05-27 20:00] VITALS: BP 117/68
--- NOTE | 2017-05-27 20:40 | NUR ---
PT PACING HALLS YELLING AT STAFF AND PEERS "I'M GOING TO HAVE A SEIZURE, I'M GOING TO THROW MYSELF ON THE GROUND AND SPLIT MY HEAD OPEN AND MIRIAM YOU ALL, THERES GOING TO BE A LAW SUIT IN THE MORNING". PT THEN BEGAN RUNNING DOWN THE VERA YELLING "I'M NOT AND ANIMAL, YOU CANT TREAT ME LIKE SOME LOWLY BEING". PT INFORMED THAT SHE WOULD BE GETTING HER MEDICATIONS SOON POSSIBLE AND THAT RUNNING IS NOT ALLOWED IN THE HALLS. PT GIVEN THE OPPORTUNITY TO [place] PRN ATIVAN PO ADMINISTERED
--- NOTE | 2017-05-27 21:04 | NUR ---
DR. FERREIRA MADE AWARE OF ADMISSION WITH CONSULT FOR MEDICAL MANAGEMENT WITH UPDATED MED REQ
--- NOTE | 2017-05-27 21:40 | NUR ---
PRN ATIVAN SEMI EFFECTIVE. PT HAS STARTED TO CALM DOWN HOWEVER IS OBSEESSIVE ABOUT HER MEDICATIONS. REASSURED PT ONCE THE DR OK'S HER MEDICATION SHE WILL GET IT. WILL CONTINUE TO MONITOR PT FOR EFFECTIVENESS OF MEDICATION.
--- NOTE | 2017-05-27 21:47 | NUR ---
DR MARYELLEN FOOTE ON UNIT TO ASSESS PT. UPDATED ON PT CONDITION.
[2017-05-27 23:24] VITALS: BP 117/68
--- NOTE | 2017-05-28 05:26 | NUR ---
PT CAME TO NURSES STATION AND HAD A C/O BEING NAUSEOUS. PT REQUESTED ZOFRAN FOR NASUEA. PRN ZOFRAN GIVEN AT THIS TIME PER ORDER. WILL MONITOR EFFECTIVENESS OF MEDICATION.
--- NOTE | 2017-05-28 06:44 | NUR ---
PT SLEPT GREATER THAN 6 HOURS. NO S/S OF DISTRESS NOTED. NO C/O PAIN. PT STATED HER ZOFRAN FOR NAUSEA WAS EFFECTIVE. Q15 MINUTE SAFETY CHECKS MAINTAINED. SEE [facility] FLOWS[facility]ET FOR SPECIFIC MONITORING. NO FURTHER BEHAVIORS NOTED THROUGHOUT THE NIGHT AND THIS AM
[2017-05-28 07:00] LABS: THYROID STIM HORMONE (HS) 1.76 uIU/ml (0.358-4.75)
[2017-05-28 07:46] LABS: VITAMIN D, 25-HYDROXY 94.8 ng/mL (30-100)
[2017-05-28 07:56] VITALS: BP 123/63
--- NOTE | 2017-05-28 11:45 | NUR ---
DR MANCIA UP TO SEE PATIENTS, NOTIFIED OF LABS
--- NOTE | 2017-05-28 11:49 | NUR ---
24 HR chart check completed.
--- NOTE | 2017-05-28 14:16 | NUR ---
PT RECIEVED PRN CODEINE FOR 10/10 MID STERNAL PAIN
[2017-05-28] MEDS ORDERED: PREDNISOLONE ACE5 ML OD (16:16)
--- NOTE | 2017-05-28 17:58 | NUR ---
PT C/O NAUSEA ASKED FOR ZOPHRAN
--- NOTE | 2017-05-28 18:05 | NUR ---
ALERT AND ORIENTD X4, PLEASANT, MANIC, SOMATIC, MED SEEKING , PAIN HAS DECREASED, CODEIN WAS EFFECTIVE, DENIES SI.HI, DENIES ALL PSYCHOSIS, UP AND STEADY, CONTINENT, MED COMPLIANT, CAN BE INTRUSIVE, BUT REDIRECETABLE, PT IS STILL MANIC, WILL CONTINUE TO MONITOR BAHAVIORS AND FOLLOW TREATMENT PLAN
[2017-05-28 20:20] VITALS: BP 122/67
--- NOTE | 2017-05-29 04:25 | NUR ---
PT CAME TO THE NURSES STATION AND REQUESTED CODEINE FOR PAIN. PT STATED SHE HAD 10/10 BACK PAIN RADIATING ACROSS HER BACK. PRN TYLENOL WITH CODEINE GIVEN PER ORDER. WILL MONITOR PT FOR EFFECTIVENESS OF MEDICATION.
--- NOTE | 2017-05-29 05:15 | NUR ---
PRN TYLENOL WITH CODEINE EFFECTIVE. PT RESTING IN BED WITH EYES CLOSED AND NO S/S OF PAIN NOTED. WILL CONTINUE TO MONITOR EFFECTIVENESS OF MEDICATION.
--- NOTE | 2017-05-29 06:00 | NUR ---
PT SLEPT APPROXIMATELY 8 HOURS THIS SHIFT. NO S/S OF DISTRESS NOTED. PT HAD A MUCH BETTER NIGHT. WAS JOKING AROUND WITH STAFF AND PEERS. APOLOGIZED TO EVERYONE FOR HER BEHAVIOR ON THE NIGHT BEFORE. NO OTHER C/O PAIN AT THIS TIME. SEE [facility] FLOWSHEET FOR SPECIFIC MONITORING. Q 15 MINUTE SAFETY CHECKS MAINTAINED.
--- NOTE | 2017-05-29 06:13 | NUR ---
24 HR chart check completed.
[2017-05-29 08:04] VITALS: BP 145/73
--- NOTE | 2017-05-29 16:40 | NUR ---
alert x4, less manic, social with staff and peers, denies si/hi, all psychosis, incontrol, still med seeking with pain pills, somatic , attends groups and participates , continent, up and steady, will continue to follow treatment plan
[2017-05-29 20:49] VITALS: BP 140/88
--- NOTE | 2017-05-29 21:40 | NUR ---
PT REQUESTED & MEDICATED WITH CODEINE 30 MG @ 2135 FOR C/O CHRONIC MID BACK & NECK PAIN. RATED PAIN 8.
--- NOTE | 2017-05-29 22:59 | NUR ---
24 HR chart check completed.
--- NOTE | 2017-05-30 06:08 | NUR ---
CODEINE WAS EFFECTIVE & PT HAS SLEPT QUIETLY THROUGHOUT THE SHIFT PAST 2214.
--- NOTE | 2017-05-30 06:44 | NUR ---
PT REQUESTED & MEDICATED WITH CODEINE 30 MG & TYLENOL 325 MG aT 0642 FOR C/O CHRONIC MID BACK & NECK PAIN. RATED PAIN 9/10.
--- NOTE | 2017-05-30 07:56 | NUR ---
CALLED THIS AM AT 0734, PER THIS NURSE ARTUR ADVISED THAT WE DO NOT TAKE CALLS THIS EARLY IN THE MORNING, CALLS ARE ACCEPTED BETWEEN 9AM AND 9PM. MANNIE SIDDIQUI SPEAKING ON THE PHONE, STATED "SO YOU'RE TELLING ME I CAN'T EVEN TALK TO MY , ARTUR ADVISED THAT WE ACCPET CALLS BETWEEN 9AM AND 9PM. BEGAN YELLING "WELL I'LL JUST COME DOWN THERE AND MAKE A BIG SCENE." SECURITY,KELSEY, ADVISED OF INCIDENT.
[2017-05-30 09:34] VITALS: BP 129/70
--- NOTE | 2017-05-30 13:23 | NUR ---
Dr. Hoang gave discharge order for Pt today.
--- NOTE | 2017-05-30 13:23 | NUR ---
ROSY scheduled follow up medical with Dr. Jo-Ann Kimble at [facility] for 05/2017 at 10:30am. ROSY tried to schedule with the [facility] and the line is busy. ROSY called [facility] to make sure Pt was not seen there. Pt is seen at the [facility] office.
--- NOTE | 2017-05-30 13:25 | NUR ---
SW has made multiple attempts to contact [facility] to confirm appointments but phone rings busy. Pt statd that she saw the psychaitrist last month and sees her every 3 months. Pt to see her counselor next week but hightower snot recall date or time. Pt has appointments written down at home.
--- NOTE | 2017-05-30 13:27 | NUR ---
Socializing This is tuesday with new patients. I like to talk with patients to find out what they like or dont like, things they enjoy doing etc.. Patient did attend group this morning as well as participate. Patient very talkative to the point of being disruptive. Patient reminded other patients are speaking several times and i was interupted reminding patient of this. Patient seems to be domineering and controling person.
--- NOTE | 2017-05-30 13:27 | NUR ---
ROSY scheduled [facility] Transportation. superintendent police will be between 12 - 3pm with tentative time of 2:50pm. SW informed RNs and Milieu.
--- NOTE | 2017-05-30 13:28 | NUR ---
SW informed Pt of hand picker time of 2:50pm.
--- NOTE | 2017-05-30 14:59 | NUR ---
PT ALERT TO PERSON,PLACE,TIME AND SITUATION. PT DENIES ANY HOMICIDAL/SUICIDAL THOUGHTS. NO HALLUCINATIONS OR DELUSIONS NOTED. PT DISCHARGED VIA [employer]ES[employer] RIDE.
--- NOTE | 2017-05-30 15:24 | NUR ---
SW reviewed discharge papers with Pt. Pt recieved a copy of discharge papers. Pt discharged home with [facility] transportation.
--- NOTE | 2017-05-31 09:32 | NUR ---
RECIEVED CALL FROM PT WHO WAS DISCHARGED YESTERDAY, STATES SHE HAS NO SCRIPT FOR LACTULOSE TO TAKE POST DISCHARGE AND STATES DR. NERI TOLD HER SHE SHOULD CONTINUE TAKING IT. CALL PLACED TO DR. NERI WHO STATES HE DOES WANT PT TO CONTINUE TAKING LACTULOSE 20GM DAILY FOR ONE MONTH AND STATES OK FOR THIS NURSE TO CALL SCRIPT IN TO PT'S PHARMACY. WITNESSED BY 2ND RN TIFFANIE
--- NOTE | 2017-05-31 09:36 | NUR ---
LACTULOSE 20GM PO DAILY X1 MONTH CALLED IN PER DR. NERI TO [facility] IN [place], SPOKE TO PHARMACIST, EDITH. WITNESSED BY 2ND RNSejal MORENO. CALL PLACED TO PT TO MAKE AWARE SCRIPT WAS CALLED IN.
--- NOTE | 2017-05-31 09:50 | NUR ---
Spiral Winder Note: Called [facility]ician's to get their fax number to send discharge information for Patient's appointment on 06/01 @ 10:30am, office said that patient cancelled that appointment today.
== END 2017-05-30 14:55 | disposition home or self-care (01) | DRG 885 ==
LOC: ED 10:42 → 3N 15:53
PROVIDERS: Nurse Practitioner Family; Registered Nurse; ADMIT Psychiatry & Neurology Psychiatry
DX: F31.81 Bipolar II disorder (principal); G62.9 Polyneuropathy, unspecified; F41.9 Anxiety disorder, unspecified; M19.90 Unspecified osteoarthritis, unspecified site; F60.3 Borderline personality disorder; G40.909 Epilepsy, unspecified, not intractable, without status epilepticus; F29 Unspecified psychosis not due to a substance or known physiological condition; E87.6 Hypokalemia; G89.29 Other chronic pain; F90.9 Attention-deficit hyperactivity disorder, unspecified type; F17.210 Nicotine dependence, cigarettes, uncomplicated; Z91.030 Bee allergy status; Z88.0 Allergy status to penicillin; Z88.8 Allergy status to other drugs, medicaments and biological substances; Z79.899 Other long term (current) drug therapy; Z98.891 History of uterine scar from previous surgery; Z98.49 Cataract extraction status, unspecified eye; Z84.1 Family history of disorders of kidney and ureter; Z82.61 Family history of arthritis; Z82.49 Family history of ischemic heart disease and other diseases of the circulatory system; Z83.3 Family history of diabetes mellitus; Z82.0 Family history of epilepsy and other diseases of the nervous system; Z79.82 Long term (current) use of aspirin; Z71.6 Tobacco abuse counseling

== ENCOUNTER 2017-06-21 12:12 | Emergency (ER) | payer OTHER ==
[~2017-06-21] VITALS: Ht 167.6 cm; Wt 63.5 kg
[~2017-06-21 12:12] MED LIST changes: +CYCLOBENZAPRINE5 M3 PO; +PREDNISOLONE ACE5 ML OD
[2017-06-21 13:05] LABS: BASO # 0.1 10*3/uL (0.0-0.1); BASO % 0.4 % (0.0-1.0); EOS # 0.2 10*3/uL (0.0-0.4); EOS % 1.1 % (1.0-4.0); HEMATOCRIT 42.5 % (37.0-47.0); HEMOGLOBIN 13.9 g/dl (12.0-16.0); LYMPH # 3.5 10*3/uL (1.3-4.4); LYMPH % 22.5 % (27.0-41.0); MEAN CELL VOLUME 91.2 fl (81.0-99.0); MEAN CORPUSCULAR HGB 29.8 pg (27.0-31.0); MEAN CORPUSCULAR HGB CONC 32.7 g/dl (33.0-37.0); MONO # 1.3 10*3/uL (0.1-1.0); MONO % 8.5 % (3.0-9.0); NEUT # 10.5 10*3/uL (2.3-7.9); PLATELET COUNT AUTOMATED 326 10*3/uL (130-400); RED BLOOD COUNT 4.66 10*6/uL (4.10-5.10); RED CELL DISTRI WIDTH 13.4 % (0-14.5); WHITE BLOOD COUNT 15.7 10*3/uL (4.8-10.8)
[2017-06-21 13:19] LABS: ALBUMIN 3.9 gm/dl (3.1-4.5); ALKALINE PHOSPHATASE 191 U/L (45-117); BUN 21 mg/dl (7-24); CHLORIDE 106 mmol/L (98-107); CREATININE 0.88 mg/dL (0.55-1.02); LIPASE 184 U/L (73-393); POTASSIUM 3.7 mmol/L (3.5-5.1); SGOT/AST 13 IU/L (3-35); SGPT/ALT 16 U/L (12-78); SODIUM 141 mmol/L (136-145)
[2017-06-21 13:21] LABS: BILIRUBIN 2+ (NEGATIVE); BLOOD NEGATIVE (NEGATIVE); CLARITY SL CLOUDY (CLEAR); COLOR YELLOW (YELLOW); GLUCOSE NEGATIVE (NEGATIVE); KETONE 3+ (NEGATIVE); NITRITE NEGATIVE (NEGATIVE); PH 5.5 (5.0-9.0); SPECIFIC GRAVITY >= 1.030 (1.005-1.030)
[2017-06-21 13:23] LABS: LEUKO ESTERASE NEGATIVE (NEGATIVE)
[2017-06-21 13:32] LABS: BACTERIA 2+; CALCIUM OXALATE CRYSTALS 2+; MUCOUS 1+
[2017-06-22] MEDS ORDERED: Synthroid,Levo25 MCG PO (15:31)
[2017-06-22] MEDS ORDERED: VISTARIL50 MG PO (15:32)
[2017-06-22] MEDS ORDERED: RESTORIL15 MG PO (15:32)
[2017-06-22] MEDS ORDERED: TRAMADOL HCL50 MG PO (15:33)
[2017-06-22] MEDS ORDERED: ZANAFLEX4 M1 PO (15:34)
[2017-06-22] MEDS ORDERED: ZANAFLEX6 M1 PO (15:35)
[2017-06-22] MEDS ORDERED: PHENOBARBITAL32.4 M2 PO (15:41)
[2017-06-22] MEDS ORDERED: ZANTAC 150150 MG PO (15:47)
== END 2017-06-21 15:42 | disposition home or self-care (01) ==
LOC: ED 12:12
PROVIDERS: Emergency Medicine
DX: R10.11 Right upper quadrant pain (principal); F17.210 Nicotine dependence, cigarettes, uncomplicated; Z98.890 Other specified postprocedural states; Z90.89 Acquired absence of other organs; M19.90 Unspecified osteoarthritis, unspecified site; E03.9 Hypothyroidism, unspecified; G89.29 Other chronic pain; G40.909 Epilepsy, unspecified, not intractable, without status epilepticus; Z79.899 Other long term (current) drug therapy; Z79.82 Long term (current) use of aspirin; Z91.030 Bee allergy status; Z88.0 Allergy status to penicillin; Z88.6 Allergy status to analgesic agent

== ENCOUNTER 2017-06-22 08:37 | Inpatient (IN) | payer OTHER ==
[~2017-06-22] VITALS: Ht 154.9 cm; Wt 62.6 kg
--- NOTE | ~2017-06-22 | WRIGHTHP ---
[place], [place] PATIENT HISTORY AND PHYSICAL EXAM NAME: COLT GAITAN [facility] #: [id number] UNIT #: [id number] ROOM: 312 DOCTOR: JAY NERI MD BIRTHDATE: [birth year] DOS: 06/23/2017 CHIEF COMPLAINT: "I just have all this belly pain, I just don't feel right." HISTORY OF PRESENT ILLNESS: This is a 61-year-old white female well known to me from multiple admissions here to the [facility]. The patient had presented to the emergency room with complaints of persistent abdominal pain with nausea and vomiting. While in the course of her evaluation there, the patient did confide into the physician that she had been feeling increasingly depressed with poor sleep and appetite, energy, anhedonia, hopeless, helpless feelings and fleeting suicidal thoughts. The patient has a lengthy history of bipolar disorder and a lengthy history of being medication noncompliant. In addition to not taking her psychiatric medicines as prescribed, the patient reportedly is on 3 different anti-seizure medicines and has not been taking them consistently as well. She is admitted now to rule out any organic factors to attempt to stabilize on medication with the ultimate plan to return home or the least restrictive environment when psychiatrically stable. PAST MEDICAL HISTORY: Remarkable for osteoarthritis, Carlson's esophagus, bulimia, chronic pain, hiatal hernia, hypothyroidism, peripheral neuropathy, scoliosis, seizure disorder. MENTAL STATUS: Upon admission, the patient is alert and oriented. Mood does seem to be rather labile. She gives the year of depression, but she is also somewhat hyperverbal and anxious. She flips from topic to topic, but predominantly was focused on somatic issues this morning. There are no overt auditory or visual hallucinations. No delusions, no paranoia. Memory for the most part is intact. DIAGNOSIS: Bipolar type 2. PLAN: At this point, I will simplify her seizure medication regimen. Her phenobarbital level is less than 2.1 and her valproic acid level is 5.5, neither of which are remotely therapeutic. I will discontinue both the Depakote and phenobarbital, leaving her just on the Trileptal at this point. I will start her on Remeron 15 mg at bedtime augmented with Zyprexa 2.5 mg in the morning and 5 mg at night. Both of these have antinausea and vomiting properties. They both should help calm her, improve her appetite, decrease her anxiety and combat the depression. We will look to engage her in individual and cortes milieu activity. She may be a candidate for the [facility] post-discharge. We will discharge then when psychiatrically stable. [place], [place] PATIENT HISTORY AND PHYSICAL EXAM NAME: COLT GAITAN UNIT #: [id number] ROOM: 312 DOCTOR: JAY NERI MD BIRTHDATE: [birth year] JAY NERI MD CM:HISPHYS:PATIENT HISTORY AND PHYSICAL EXAMINATION 7 1002 JAY NERI MD 06/23/17 1001 interface
--- NOTE | ~2017-06-22 | PR ---
[place], [place] PROGRESS NOTE [id number] #: [id number] ROOM: 312 DOCTOR: Dario HURTADO,BISI BIRTHDATE: [birth year] DOS: 06/25/2017 SUBJECTIVE: The patient seen and spoke with the staff. Per staff, the patient is doing better than before, but still gets labile and irritable at times, med seeking to care her medication and did not have any side effect. The patient was pleasant and cooperative. She was in the day area. She reports doing "alright." She feels that she is ready to go home and claims that her is at home. She did not express any other problems or concerns. MENTAL STATUS EXAMINATION: The patient was pleasant, cooperative, described her mood as "fine." Affect, mood congruent, little bit labile. Thought process goal directed. No flight of ideas, loosening of association. She denied auditory or visual hallucination. No delusion or paranoia noted. She denied suicidal ideation, intent or plan. She also denied homicidal ideation, intent or plan. ASSESSMENT: Bipolar disorder type 2. PLANS: 1. Continue current medication and care. 2. Continue redirection. 3. Rapp milieu. BISI HURTADO MD CM:PNTRANS [id number] Dario HURTADO 06/25/172230 interface
--- NOTE | ~2017-06-22 | PR ---
[place], [place] PROGRESS NOTE [id number] #: [id number] ROOM: 312 DOCTOR: Dario HURTADO,BISI BIRTHDATE: [birth year] DOS: 06/26/2017 PSYCHIATRIC PROGRESS NOTE SUBJECTIVE: The patient seen and spoke with the staff. Per staff, the patient is doing good. No behavioral problems or issues. No wish. Medication compliant, attending groups, sleeping well. The patient was pleasant and cooperative. She was in the day area. She reports doing well, reports good sleep and appetite. Denied depressed mood or hopelessness. Denied any other neurovegetative signs and symptoms of depression. She feels that the medication is helping her. MENTAL STATUS EXAMINATION: The patient was pleasant, cooperative, described her mood as "okay." Affect, mood congruent. Thought process goal directed. No flight of ideas or loosening of association. She denied auditory or visual hallucination. No delusion or paranoia noted. She denied suicidal ideation, intent or plan. She also denied homicidal ideation, intent or plan. ASSESSMENT: Bipolar disorder type 2. PLAN: 1. Continue current medication and care. 2. Continue redirection. 3. Rapp milieu. 4. Medication management and discharge planning by the regular team. BISI HURTADO MD CM:MEGAN [id number] Dario HURTADO 06/26/17 1540 interface
--- NOTE | ~2017-06-22 | DS ---
[place], [place] DISCHARGE SUMMARY NAME[id number] #: [id number] ROOM: 312 DOCTOR: JAY NERI MD BIRTHDATE: [birth year] DOS: 06/27/2017 CHIEF COMPLAINT: "I just have all this belly pain, I just don't feel right." HISTORY OF PRESENT ILLNESS: This is a 61-year-old white female well known to me from multiple admissions to the [facility] as well as several ER visits. The patient presents now to the Emergency Room with complaints of persistent abdominal pain with nausea and vomiting. While in the course of her evaluation there, she did confide to the Emergency Room physician that she has been feeling increasingly depressed with poor sleep and appetite, poor energy, anhedonia, hopeless, helpless feelings and fleeting suicidal thoughts. The patient does have a lengthy history of bipolar disorder as well as a lengthy history of noncompliance. She is admitted now to rule out organic factors and to stabilize on medication while engaging in individual and cortes milieu activity. PAST MEDICAL HISTORY: Remarkable for osteoarthritis, Carlson's esophagus, bulimia, chronic pain, hiatal hernia, hypothyroidism, peripheral neuropathy, scoliosis and seizure disorder. SUMMARY OF HOSPITAL COURSE: The patient was admitted to the unit where her meds were simplified given her significant noncompliance and the fact that her phenobarbital level was less than 2.1 and her valproic acid level was only 5.5. Both phenobarbital and Depakote were discontinued in lieu of maintaining her on Trileptal 600 mg twice daily. Remeron was added as an antidepressant at a the dose of 15 mg a day, while Zyprexa 2.5 in the morning and 5 mg at night was added to augment the effectiveness of the Remeron. It was hoped that these medications would impact positively on her mood while also decreasing nausea and vomiting and decreasing some of her belly pain. She responded well to these medicines and had a very rapid and dramatic improvement. Her mood improved, sleep improved as did appetite. She did report upon admission that she could not keep food down. This seemed to help ovidio that symptom. Her improvement was paredes and dramatic and she was able to return home then on June 27. MENTAL STATUS AT DISCHARGE: The patient is alert and oriented to person, place and time. Mood does seem to be euthymic. Affect is appropriate. There is no arabella or hypomania. There are no overt auditory or visual hallucinations. No delusions. No paranoia. Short, intermediate and long-term memories are fully intact. FINAL DIAGNOSES: Bipolar type 2. PLAN: All of her prescriptions have been e scribed. She will have followup in the [facility]. [place], [place] DISCHARGE SUMMARY NAME: COLT GUERRIER I UNIT #: [id number] ROOM: 312 DOCTOR: JAY NERI MD BIRTHDATE: [birth year] JAY NERI MD CM:DISCHARG [id number] JAY NERI MD 06/27/17 1007 interface
[2017-06-22 08:38] VITALS: BP 139/87
[2017-06-22 09:22] LABS: ACT PARTIAL THROMBO TIME 25.5 SECONDS (20.8-31.5)
[2017-06-22 09:34] LABS: BILIRUBIN 2+ (NEGATIVE); BLOOD NEGATIVE (NEGATIVE); CLARITY SL CLOUDY (CLEAR); COLOR YELLOW (YELLOW); GLUCOSE NEGATIVE (NEGATIVE); KETONE 3+ (NEGATIVE); LEUKO ESTERASE NEGATIVE (NEGATIVE); NITRITE NEGATIVE (NEGATIVE); PH 5.5 (5.0-9.0); SPECIFIC GRAVITY >= 1.030 (1.005-1.030)
[2017-06-22 09:35] LABS: ALBUMIN 3.6 gm/dl (3.1-4.5); ALKALINE PHOSPHATASE 174 U/L (45-117); BUN 25 mg/dl (7-24); CHLORIDE 106 mmol/L (98-107); CREATININE 0.89 mg/dL (0.55-1.02); LIPASE 149 U/L (73-393); MAGNESIUM 2.1 mg/dL (1.5-2.1); POTASSIUM 3.4 mmol/L (3.5-5.1); SGOT/AST 12 IU/L (3-35); SGPT/ALT 15 U/L (12-78); SODIUM 142 mmol/L (136-145); TOTAL PROTEIN 7.4 gm/dL (6.4-8.2)
[2017-06-22 09:37] LABS: TROPONIN I < 0.015 ng/ml (<0.045)
[2017-06-22 09:41] LABS: THYROID STIM HORMONE (HS) 0.471 uIU/ml (0.358-4.75)
[2017-06-22 09:47] LABS: CALCIUM OXALATE CRYSTALS 2+; MUCOUS 1+
[2017-06-22 09:53] LABS: BASO # 0.1 10*3/uL (0.0-0.1); BASO % 1.4 % (0.0-1.0); EOS # 0.4 10*3/uL (0.0-0.4); EOS % 6.2 % (1.0-4.0); HEMATOCRIT 38.8 % (37.0-47.0); HEMOGLOBIN 12.6 g/dl (12.0-16.0); LYMPH # 1.9 10*3/uL (1.3-4.4); LYMPH % 27.5 % (27.0-41.0); MEAN CELL VOLUME 90.2 fl (81.0-99.0); MEAN CORPUSCULAR HGB 29.3 pg (27.0-31.0); MEAN CORPUSCULAR HGB CONC 32.5 g/dl (33.0-37.0); MEAN PLATELET VOLUME 10.4 fl (9.6-12.3); MONO # 0.6 10*3/uL (0.1-1.0); MONO % 8.7 % (3.0-9.0); NEUT # 3.9 10*3/uL (2.3-7.9); NEUT % 55.9 % (47.0-73.0); PLATELET COUNT AUTOMATED 277 10*3/uL (130-400); RED CELL DISTRI WIDTH 13.6 % (0-14.5); WHITE BLOOD COUNT 6.9 10*3/uL (4.8-10.8)
--- NOTE | 2017-06-22 10:13 | NUR ---
PATIENT RESTING STILL AWAITING CT RESULTS.
--- NOTE | 2017-06-22 10:15 | NUR ---
PATIENT RESTING COMFORTABLY, NO NEEDS EXPRESSED AT THIS TIME.
[2017-06-22 10:36] LABS: VALPROIC ACID (DEPAKENE) 5.5 ug/ml (50-100)
[2017-06-22 10:46] LABS: PHENOBARBITAL (LUMINAL) < 2.1 ug/ml (15-40)
--- NOTE | 2017-06-22 12:19 | NUR ---
STOMACH PAIN MUCH BETTER WITH GI COCKTAIL DOSING.
--- NOTE | 2017-06-22 12:32 | NUR ---
COLT GAITAN a 61 year old F admitted via wheel chair from the ADMITTING as a voluntary admission. Arrived on unit at 1232. ALLERGIES: BEE STING, PCN, COMPAZINE, PROPOFOL. Vital signs are: [id number] 129/58. The client signed the following forms with stated understanding: Authorization For The Release of Medical Information, Clothing List, Consent to Voluntary Admission and Hospitalization, Consent and Release Forms/Receipt of Rights, Acknowledgement of Advance Directive Information, Behavioral Health Consent Form, and Informed Consent of Medications. Admitted under the services of Dr. DARON VIGIL,[facility]. A search was conducted and hazardous articles were removed. Client was oriented to the unit. KELSY METCALF
[2017-06-22 13:03] VITALS: BP 129/58
--- NOTE | 2017-06-22 14:30 | NUR ---
PATIENT IS ALERT AND ORIENT TO PERSON, PLACE AND TIME; ABLE TO VOICE NEEDS. MOOD IS PSYCHOTIC, LOUD, FLIGHT OF IDEAS NOTED, COOPERATIVE DURING ASSESSMENT. DENIES ANY HALLUCINATIONS, DELUSIONS, HI/SI. PATIENT IS CONTINENT OF BOWEL AND BLADDER. INDEPENDANT WITH ACTIVITIES OF DAILY LIVING. AMBULATORY WITH STEADY GAIT. Q 15 MINUTE SAFETY CHECKS MAINTAINED.
--- NOTE | 2017-06-22 14:30 | NUR ---
DR. MORRISON NOTIFIED OF NEW ADMISSION, MED LIST AND DX LIST FOR REVIEW.
--- NOTE | 2017-06-22 15:30 | NUR ---
DR MORRISON NOTIFIED OF NEW ADMISSION, MEDICATION AND DIAGNOSIS LIST FOR REVIEW.
[2017-06-22] MEDS ORDERED: Synthroid,Levo25 MCG PO (15:31)
[2017-06-22] MEDS ORDERED: VISTARIL50 MG PO (15:32)
[2017-06-22] MEDS ORDERED: RESTORIL15 MG PO (15:32)
[2017-06-22] MEDS ORDERED: TRAMADOL HCL50 MG PO (15:33)
[2017-06-22] MEDS ORDERED: ZANAFLEX4 M1 PO (15:34)
[2017-06-22] MEDS ORDERED: ZANAFLEX6 M1 PO (15:35)
[2017-06-22] MEDS ORDERED: PHENOBARBITAL32.4 M2 PO (15:41)
[2017-06-22] MEDS ORDERED: ZANTAC 150150 MG PO (15:47)
--- NOTE | 2017-06-22 17:28 | NUR ---
PATEINT COMPLAIN OF BACK PAIN, RATING 8/10 PAIN, PRN TYLENOL #3 GIVE PO AT THIS TIME.
--- NOTE | 2017-06-22 18:28 | NUR ---
PRN TYLENOL #3 EFFECTIVE, NO FURTHER COMPLAINTS OF PAIN. PATIENT SOCIALIZING AND LAUGHING WITH THE OTHER PATIENTS.
[2017-06-22 20:00] VITALS: BP 123/59
--- NOTE | 2017-06-23 01:49 | NUR ---
PATIENT RECIEVED PRN CODEDINE 30MG REQUESTED FOR C/O BACK PAIN WITH A RATING OF 8/10, NO OTHER COMPLAINTS NOTED. NO SIGNS OR SYMPTOMS OF DISTRESS.
--- NOTE | 2017-06-23 03:00 | NUR ---
PATIENT LAYING DOWN WITH EYES CLOSED. RESPIRATIONS EASY AND REGULAR. NO SIGNS OR SYMPTOMS OF DISTRESS NOTED. PRN CODEINE 30MG GIVEN AT 0146 EFFECTIVE AT THIS TIME.
--- NOTE | 2017-06-23 05:35 | NUR ---
PATIENT OBSERVED ON Q 15 MIN SAFETY CHECKS TO HAVE SLEPT >7 HOURS WITH ONE BRIEF AWAKENING TO APPROACH NURSES STATION TO SPEAK TO STAFF. DENIES FEELINGS OF DEPRESSION, ANIXETY, AND SUICIDAL IDEATIONS. PATIENT INFORMED THAT IF THOUGHTS ARISE TO HARM SELF TO NOTIFY STAFF, PATIENT CONTRACTED FOR SAFETY. NO HALLUCINATIONS OR DELUSIONS NOTED THIS SHIFT. MEDICATION COMPLIANT WITHOUT DIFFICULTY. PATIENT CURRENTLY IN BED WITH EYES CLOSED. RESPIRATIONS EASY AND REGULAR. NO SIGNS OR SYMPTOMS OF DISTRESS. REFER TO [facility] FLOWSHEET FOR SPECIFIC MONITORING.
--- NOTE | 2017-06-23 06:55 | NUR ---
PATIENT RECIEVED PRN TYLENOL 650MG FOR C/O A HEADACHE WITH A RATING OF 5/10. NO OTHER PHYSICAL COMPLAINTS VOICED. NO SIGNS OR SYMPTOMS OF DISTRESS NOTED.
--- NOTE | 2017-06-23 07:13 | NUR ---
06/22/17 Afternoon Patient was in attendence in begining of group. Patient very agiatated and argumentative want her meds because "I'm Crazy. Why do you think im here?" and "I Needed to see DR. Hoang for my medicine. I'm Bipolar." Attempt to redirect several times, Patient asked to leave the room. Patient came back a few minutes later promising to "behave" and joined group with no other issues
--- NOTE | 2017-06-23 07:42 | NUR ---
PER MARIA T JOHNS, SHE STATES OK TO CANCEL HIDA SCAN AND SHE WILL RESCHEDULE OUTPATIENT WHEN PT IS DISCHRAGED. IVONNE IN RADIOLOGY NOTIFIED. HIDA SCAN CANCELED AT THIS TIME.
--- NOTE | 2017-06-23 07:46 | NUR ---
24 hour chart check completed.
[2017-06-23 08:04] LABS: CHOLESTEROL 233 mg/dL (<200); HDL CHOLESTEROL 54 mg/dl (40-60); LDL CHOLESTEROL 137 mg/dL (9-159); TRIGLYCERIDES 212 mg/dl (<150); VLDL CHOLESTEROL 42 mg/dL (6-40)
[2017-06-23 08:17] VITALS: BP 125/77
--- NOTE | 2017-06-23 08:30 | NUR ---
Treatment Team was held with the following : Dr. Hoang, Medical Student, Resident, SALES ANALYST, RNs, ATs, SW. Dr. Hoang canot find seizure dx and is going to stop seizure meds since Pt has not been taking them. Dr. Hoang requested a disclosure form be bryon [facility] in [place] so that he can d/c refills. Pending discharge for Tuesday06-24-17.
[2017-06-23 08:40] LABS: VITAMIN D, 25-HYDROXY 63.4 ng/mL (30-100)
--- NOTE | 2017-06-23 10:17 | NUR ---
PRN TYLENOL #3 (ONE TAB CODIENE, ONE TAB TYLENOL) GIVEN AT THIS TIME PER EMAR FOR PT C/O BACK AND LEG PAIN RATED LEVEL 9/10. WILL MONITOR FOR EFFECTIVENESS.
--- NOTE | 2017-06-23 11:48 | NUR ---
PT IS ALERT AND ORIENTED TO PERSON, PLACE, TIME AND SITUATION. MEMORY APPEARS INTACT. RESPIRATIONS EASY ON ROOM AIR. MOOD IS LABILE, AFFECT IS ANIMATED, SPEECH IS RAPID AND LOUD, PRESSURED AT TIMES, PT NOTED TO BE EXHIBITING MANIC BEHAVIORS WITH GRANDIOSE DELUSIONS AND FLIGHT OF IDEAS. INTRUSIVE AT TIMES. PT DENIES SI/HI. VERBALLY CONTRACTED FOR SAFETY. PT DENIES HALLUCINATIONS, NO RESPONSE TO INTERNAL STIMULI NOTED. MEDICATION COMPLIANT WITHOUT DIFFICULTY. PT STATES "I GUESS I HAVEN'T BEEN TAKING MY MEDS AT HOME. I GET HOME AND I DON'T FEEL LIKE I NEED THEM ANYMORE, SO I STOPPED TAKING THEM ALL AND I ENDED UP BACK HERE." PT EDUCATED ON IMPORTANCE OF MEDICATION COMPLIANT POST DISCHARGE, PT STATES "YEAH, I KNOW." PRN TYLENOL #3 HAS BEEN EFFECTIVE, PT WITH NO FURTHER C/O PAIN OF THIS TIME. PT IS CALM AND COOPERATIVE, INTERACTIVE WITH STAFF AND PEERS. PARTICIPATING IN GROUPS AND ACTIVITIES. NO DISTRESS NOTED. Q15 MIN SAFETY CHECKS MAINTAINED, REFER TO [facility] FLOWSHEET FOR SPECIFIC MONITORING.
--- NOTE | 2017-06-23 12:39 | NUR ---
LOPEZ HO CNP FROM HOSPITALISTS GROUP ON UNIT TO SEE PT AT THIS TIME. UPDATE GIVEN. SPOKE WITH PT REGARDING FIORICET ORDERS.
--- NOTE | 2017-06-23 13:13 | NUR ---
Morning exercises/ "strawberry" cornhole and remenissing Patient attended group and displayed good participation. Patient assisted in choosing activty this date and was able to encourage other patients appropriately during group. Patient requires minimal cues during remenissing task to let others speak or to slow rate of speech however patient stayed on topic.
--- NOTE | 2017-06-23 15:11 | NUR ---
Inspirational craft group Patient attended and appropriately participated in group. Patient able to state words that inspire them and also items that lifts their spirits when upset. Patient pleasant throughout group activity.
--- NOTE | 2017-06-23 15:41 | NUR ---
ROSY EXPLAINED TO PT THAT DR. NERI WANTED A DISCLOSURE FORM SIGNED FOR ANY PHARMCY THAT PT USES. PT USES [facility] IN [place] AND MAIL IN [place] [facility]ROUGH THE [facility]. PT SIGNED DISCLOSURE AND IT IS ON CHART. RN NOTIFIED.
--- NOTE | 2017-06-23 18:28 | NUR ---
SHIFT CHART CHECK COMPLETED.
[2017-06-23 19:41] VITALS: BP 125/60
--- NOTE | 2017-06-23 19:58 | NUR ---
CALL PLACED TO [facility] IN [place] TO CLARIFY SYNTHROID DOSE AND FREQUENCY. IT WAS REPORTED THAT PT HAS NOT HAD SYNTHROID FILLED SINCE 12/27. LAST DOSE REPORTED WAS ONE HALF TAB OF 25 MCG Q AM ON AN EMPTY STOMACH. DR. AHUJA NOTIFIED OF FINDINGS STATING HE WILL REVIEW CHART AND LABS AND NOTIFY OF ANY CHANGES. NNO AT THIS TIME.
--- NOTE | 2017-06-23 20:20 | NUR ---
PT REPORTING PAIN TO BACK LEVEL OF 8 ON A SCALE OF 1-10. PRN TYLENOL WITH CODINE GIVEN
--- NOTE | 2017-06-23 21:00 | NUR ---
PT RESTING QUIETLY IN BED A THIS TIME PRN TYLENOL WITH CODINE EFFECTIVE.
--- NOTE | 2017-06-24 04:14 | NUR ---
24 HR chart check completed.
--- NOTE | 2017-06-24 05:30 | NUR ---
PT PLESANT AND COOPERATIVE WITH ALL ASPECTS OF CARE, MEDICATION COMPLIANT WITH OUT DIFICULTY. EXHIBITS PRESSURED SPEECH, ANIMATED AND LOUD. PT PROVIDED 1-1 PREOCCUPIED WITH FEAR OF STILL BEING TO EX SINCE PAPER WORK CANNOT BE FOUND FROM DIV[employer]. PT RECENTLY HAD NAME CHANGED BACK TO MAIDEN NAME. CONTINUE PLAN OF CARE. PT SLEPT 8 HOURS WITH OUT INTURRUPTION.
--- NOTE | 2017-06-24 06:05 | NUR ---
UPON EARLY AM MED PASS PT REPORTING BACK PAIN LEVEL OF 8 ON A SCALE OF 1-10. PRN TYLENOL 3 ADMINISTERED.
[2017-06-24] MEDS ORDERED: ZYPREXA2.5 MG PO (08:11)
[2017-06-24] MEDS ORDERED: MIRTAZAPINE15 M2 PO (08:11)
[2017-06-24] MEDS ORDERED: OXCARBAZEPINE600 MG PO (08:11)
[2017-06-24] MEDS ORDERED: HYDROXYZINE PAM25 M1 PO (08:11)
[2017-06-24] MEDS ORDERED: OLANZAPINE5 MG PO (08:11)
[2017-06-24] MEDS ORDERED: Vitamin D PO (08:11)
--- NOTE | 2017-06-24 08:20 | NUR ---
TREATMETN TEAM WAS HELD WITH THE FOLLOWING: DR. NERI, RESIDENT, RNs, ATs, SW. dR. NERI IS LEAVING WORD FOR DR. HURTADO TO DSICAHRGE PT POSSIBLE ON TUESDAY FOR DR. VALERIO ON TUESDAY.
[2017-06-24 09:46] VITALS: BP 121/68
--- NOTE | 2017-06-24 09:46 | NUR ---
PRN FIORIECT ONE TAB PO GIVEN AT THIS TIME PER PT REQUEST FOR C/O MIGRAINE HEADACHE. WILL MONITOR FOR EFFECTIVENESS.
--- NOTE | 2017-06-24 10:50 | NUR ---
FIORICET HAS BEEN EFFECTIVE.
--- NOTE | 2017-06-24 13:26 | NUR ---
Exercise/Game Patient was in attendence as well as participated. Patient was happy and smiling,answering questions with no prompting.Patient had no inappropriate thoughts throughout group
--- NOTE | 2017-06-24 14:10 | NUR ---
PRN TYLENOL #3 (ONE TAB TYLENOL, ONE TAB CODIENE) GIVEN PO AT THIS TIME PER PT REQUEST FOR C/O BACK PAIN RATED LEVEL 9/10. WILL MONITOR FOR EFFECTIVENESS.
--- NOTE | 2017-06-24 14:39 | NUR ---
PT IS ALERT AND ORIENTED TO PERSON, PLACE, TIME AND SITUATION. MEMORY APPEARS INTACT. RESPIRATIONS EASY ON ROOM AIR. MOOD IS STABLE, AFFECT IS APPROPRIATE. SPEECH CONTINUES TO BE LOUD AT TIMES BUT NOT RAPID WAS PRESENT UPON ADMISSION. PT DENIES SI/HI. CONTRACTED FOR SAFETY. PT DENIES HALLUCINATIONS, NO RESPONSE TO INTERNAL STIMULI NOTED. NO PARANOIA/DELUSIONS NOTED, NO FLIGHT OF IDEAS. THOUGHT PROCESS APPEARS ORGANIZED AND GOAL DIRECTED. PT STATES "I FEEL MUCH BETTER. I'M NOT MANIC LIKE I WAS." MEDICATION COMPLIANT WITHOUT DIFFICULTY, MEDICATION EDUCATION AND IMPORTANCE OF MEDICATION COMPLIANCE POST DISCHARGE DISCUSSED WITH PT WITH PTS STATED UNDERSTANDING. PT IS AMBULATORY WITH STEADY GAIT, INDEPENDENT WITH ADLS, CONTINENT OF BOWEL AND BLADDER, BOWEL PATTERN REGULAR, DISPLAYS GOOD APPETITE WITH ADEQUATE FLUID INTAKE. PT'S TREATMENT PLAN TARGETS SUICIDIAL IDEATIONS: STAFF WILL CONTINUE TO ASSIST PT IN IDENTIFYING AND PRACTICING COPING SKILLS, ASSIST PT TO IDENTIFY TRIGGERS TO SUICIDAL/SELF DESTRUCTIVE BEHAVIOR, ENCOURAGE PT TO VERBALIZE SUICIDAL IDEATIONS THEY OCCUR WELL ENCOURAGE PARTICIPATION IN GROUPS AND ACTIVITES WELL ENCOURAGEMENT OF MEDICATION COMPLIANCE. PLAN TO CONTINUE CURRENT TX PLAN. NO DISTRESS NOTED. Q15 MIN SAFETY CHECKS MAINTAINED, REFER TO [facility] FLOWSHEET FOR SPECIFIC MONITORING.
--- NOTE | 2017-06-24 15:31 | NUR ---
Witch Fishing/Reminiscing Patient did attend group as well as participated. Patient was better at not interupting and talking over others this afternoon.Patient also stated to AC no issues of feeling suicidal
--- NOTE | 2017-06-24 15:45 | NUR ---
TYLENOL #3 HAS BEEN EFFECTIVE OF THIS TIME.
--- NOTE | 2017-06-24 18:13 | NUR ---
SHIFT CHART CHECK COMPLETED.
[2017-06-24 19:46] VITALS: BP 130/62
--- NOTE | 2017-06-24 22:40 | NUR ---
PT AT NURSES STATION VOICING COMPLIANTS OF BACK PAIN PRN TYLENOL 3 ADMINISTERED.
--- NOTE | 2017-06-24 23:30 | NUR ---
PT SLEEPING SOUNDLY AT THIS TIME PRN TYLENOL 3 EFFECTIVE
--- NOTE | 2017-06-25 04:23 | NUR ---
24 HR chart check completed.
--- NOTE | 2017-06-25 05:46 | NUR ---
PT EXHIBITED NO MOOD LABILITY, NO MANIC BEHAVIOR, PLESANT AND COOPERATIVE WITH ALL ASPECTS OF CARE. APPROPRIATE TONE OF VOICE, NO DELUSIONS. CONVERSING WELL WITH PEER. MED COMPLIANT WITH OUT DIFFICULTY. SLEPT 8 HOURS WITH OUT UNINTURRUPTED.
--- NOTE | 2017-06-25 06:43 | NUR ---
PT VOICING PAIN OF 8 TO BACK PRN TYLENOL WITH CODEINE ADMINISTERED.
--- NOTE | 2017-06-25 07:43 | NUR ---
NO FURTHER C/O PAIN NOTED.
[2017-06-25 08:14] VITALS: BP 138/76
--- NOTE | 2017-06-25 10:26 | NUR ---
PT C/O HEADACHE RATED PAIN 8/10, PRN FIORICET GIVEN.
--- NOTE | 2017-06-25 10:49 | NUR ---
PT ALERT TO PERSON,PLACE AND TIME. PT MED COMPLIANT WITHOUT DIFFICULTY. PT ANXIOUS AND RESTLESS AT TIMES. PT GOAL DIRECTED TOWARDS DISCHARGE. PT INTERACTING WITH STAFF AND PEERS. NO HALLUCINATIONS OR DELUSIONS NOTED. PT DENIES ANY HOMICIDAL/SUICIDAL THOUGHTS. PT MED SEEKING ASKING FOR CODEINE AND FIORICET MULTIPLE TIMES THROUGHOUT THE DAY. PT C/O HEADACHE 04/21, PRN FIORICET GIVEN AT 1026, PT IN DINING ROOM PARTICIPATING IN GROUP AND TALKING LOUDLY TO OTHERS. PT DENIES ANY STOMACH PAIN, NAUSEA OR VOMITING. PT AMBULATORY THROUGHOUT UNIT, GAIT STEADY. PT CONTINENT OF BOWEL AND BLADDER. PT CONSUMED 50% OF BREAKFAST. PLAN IS TO ENCOURAGE PT TO PARTICIPATE IN GROUPS/ACTIVITIES, MONITOR PT BEHAVIORS ON Q15 MIN SAFTEY CHECKS, ENCOURAGE PT TO VOICE ANY SUICIDAL THOUGHTS.
--- NOTE | 2017-06-25 11:25 | NUR ---
ON UNIT TO ASSESS PT.
--- NOTE | 2017-06-25 15:02 | NUR ---
PT C/O BACK PAIN 04/21, PRN TYLENOL WITH CODEINE GIVEN. WILL CONTINUE TO MONITOR PAIN.
[2017-06-25 19:48] VITALS: BP 132/76
--- NOTE | 2017-06-25 20:56 | NUR ---
FIORICET ADMINISTERED FOR [place] RATED 7/10. WILL CONITNUE TO EVALUATE MEDICATION'S EFFECTIVENESS.
--- NOTE | 2017-06-25 22:35 | NUR ---
24HR CHART CHECKS COMPLETE
--- NOTE | 2017-06-25 23:40 | NUR ---
PT RESTING QUIETLY WITH EYES CLOSED. MEDICATION EFFECTIVE IN RELIEVING LAYTON.
--- NOTE | 2017-06-25 23:58 | NUR ---
PT ORIENTED X4. ANIMATED AFFECT NOTED. PT FIXATED ON PRN PAIN MEDICATION SCHEDULE WITHOUT ANY OUTWARD S/S OF CHRONIC PAIN. PLEASANTLY INTERACTED WITH STAFF, WELL , PEERS DURING THIS SHIFT. NO MOOD LABILITY NOTED, BORDERING ON OVERALLY ELATED. NURSE REINFORCED POSITIVE BEHAVIORS EXHIBITED DURING THIS SHIFT AND PROVIDED MEDICATION EDUCATION. PT RECEPTIVE TO EDUCATION AND VERBALIZED UNDERSTANDING. NURSE ENCOURAGED PT TO PRACTICE COPING SKILLS IN HOPES TO CONTROL PAIN AND EMOTIONAL LABILITY/AGITATION. PT RECEPTIVE TO EDUCATION. CONTINUE TO MONITOR FOR CHANGES IN BEHAVIOR. REFER TO FLOWSHEET FOR ADDITIONAL INFO.
--- NOTE | 2017-06-26 01:44 | NUR ---
PRN TYLENOL/CODEINE ADMINISTERED FOR BACK PAIN RATED 8/10. CONTINUE TO MONITOR FOR MEDICATION EFFECTIVENESS.
--- NOTE | 2017-06-26 02:30 | NUR ---
PT RESTING QUIETLY WITH EYES CLOSED. PRN PAIN MEDICATION EFFECTIVE
--- NOTE | 2017-06-26 06:19 | NUR ---
PT SLEPT >8HRS WITH ONE INTERRUPTION TO RECEIVE PAIN MEDICATION
[2017-06-26 07:54] VITALS: BP 133/78
--- NOTE | 2017-06-26 09:53 | NUR ---
PRN TYLENOL #3 GIVEN AT THIS TIME PER PT REQUEST FOR 02/19 FOR NON SPECIFIC CHRONIC PAIN UNRELIEVED WITH REPOSITIONING. WILL CONTINUE TO MONITOR FOR EFFECTIVENESS.
--- NOTE | 2017-06-26 10:53 | NUR ---
PRN TYLENOL #3 EFFECTIVE. PT REPORTS 0/10 PAIN AT THIS TIME.
--- NOTE | 2017-06-26 13:13 | NUR ---
PRN FIORICET GIVEN AT THIS TIME FOR 6/10 HEADACE UNRELIEVED WITH RESTING IN BED WITH LIGHTS OFF. WILL CONTINUE TO MONITOR FOR EFFECTIVENESS.
--- NOTE | 2017-06-26 14:10 | NUR ---
PRN FIORICET EFFECTIVE, PATIENT HAS NOT VOICE ANY FURTHER C/O PAIN OR HEADACHE.
--- NOTE | 2017-06-26 15:34 | NUR ---
PT IS ALERT AND ORIENTED TO PERSON, PLACE, TIME AND SITUATION. MOOD IS STABLE AND EUTHYMIC WITH APPROPRIATE AFFECT. POSITIVE PEER INTERACTIONS OBSERVED IN DAYROOM. CALM AND COOPERATIVE WITH STAFF. DENIES ANY SENSORY DISTURBANCES AND NONE ARE NOTED. MEDICATION COMPLIANT WITHOUT DIFFICULTY. CONVINCINGLY DENIES ANY SUICIDIAL IDEATIONS. VERBALIZING DESIRE TO GO HOME, STATES SHE IS READY TO GO TOMORROW. APPETITE GOOD FOR MEALS. REPORTS ADEQUATE SLEEP LAST NIGHT. WILL CONTINUE TO ENCOURAGE PT TO ATTEND AND PARTICIPATE IN GROUP THERAPY. Q15 MIN OBSERVATION CHECKS CONTINUE PER ORDERS.
--- NOTE | 2017-06-26 17:55 | NUR ---
PRN TYLENOL #3 GIVEN AT THIS TIME FOR 7/10 "ALL OVER" PAIN UNRELIEVED WITH REPOSITIONING. WILL CONTINUE TO MONITOR FOR EFFECTIVENESS.
--- NOTE | 2017-06-26 18:32 | NUR ---
PRN TYLENOL #3 EFFECTIVE, PATIENT HAS HAD NO FURTHER C/O PAIN OR DISCOMFORT.
[2017-06-26 20:14] VITALS: BP 125/69
--- NOTE | 2017-06-26 21:10 | NUR ---
PT VOICING COMPLAINTS OF HEADACHE LEVEL OF 6 PRN FIORCET ADMINISTERED
--- NOTE | 2017-06-26 22:00 | NUR ---
PT SLEEPING AT THIS TIME PRN FIORCET EFFECTIVE.
--- NOTE | 2017-06-27 03:15 | NUR ---
PT AT NURSES STATION REQUESTING CODIENE FOR BACK PAIN LEVEL OF 8 PRN CODIENE AND TYLENOL ADMINISTERD.
--- NOTE | 2017-06-27 03:49 | NUR ---
24 HR chart check completed.
--- NOTE | 2017-06-27 05:17 | NUR ---
pt socializing well with peers, denies SI at this time and agreed to contract for safety if thoughts return. positive coping skills reviewed with pt. med education reinforced and discussed large pill box to seprate times of day to increase compliance and lessen confusion. pt verbalized understanding. pt continues to exhibit preocupation with pain medications. slept 8 hours with one inturruption requesting pain medication for back. continue active poc
--- NOTE | 2017-06-27 06:34 | NUR ---
PT AT NURSES STATION REQUESTING FIORCET, WHEN QUESTIONED LEVEL OF PAIN SHE STATED "YEAH, LIKE A HEADACHE, I HAD MY CODIENE LAST, NOW ITS MY TURN FOR FIORICET. GOT TO TAKE IT BEFORE IT GETS BAD" REALITY PRESENTED WITH INCREASING USE OF PAIN MEDICATION AND OFFERED ALTERNATIVE METHODS FOR RELIEF. PT REFUSED. PRN FIORICET ADMINISTERED.
[2017-06-27 07:59] VITALS: BP 129/81
--- NOTE | 2017-06-27 08:05 | NUR ---
TREATMENT TEAM WAS HELD WITH DR. NERI, RN, ATs, SWs. PT TO BE DISCHARGED TODAY.
--- NOTE | 2017-06-27 08:49 | NUR ---
NOTIFIED DR. CALDERA AT [phone] REARDING PT D/C FOR TODAY AROUND 11AM.
--- NOTE | 2017-06-27 09:18 | NUR ---
[facility]Y called [facility] and left VM about meeding f/u for Pt. left number. ROYS called and scheduled f/u medical with Dr. Marlene Calix at 5pm.
[2017-06-27] MEDS ORDERED: OXCARBAZEPINE600 MG PO (09:21)
--- NOTE | 2017-06-27 10:14 | NUR ---
ON UNIT TO ASSESS PT.
--- NOTE | 2017-06-27 12:10 | NUR ---
ROSY spoke with Lynda Harman - Provide a Ride. Provide a ride will have someone out in the next 3 hours.
--- NOTE | 2017-06-27 12:31 | NUR ---
PT ALERT TO PERSON,PLACE,TIME AND SITUATION. PT MOOD IS STABLE, PT GOAL DIRECTED TOWARDS DISCHARGE. PT CALM, INTERACTING WITH STAFF AND PEERS. NO HALLUCINATIONS OR DELUSIONS NOTED. PT DENIES ANY HOMICIDAL/SUICIDAL THOUGHTS. PT C/O BACK PAIN 04/21, PT MEDICATED WITH PRN PO TYLENOL WITH CODEINE. PT AMBULATORY THROUGHOUT UNIT, GAIT STEADY. PT CONTINENT OF BOWEL AND BLADDER. TREATMENT PLAN COMPLETED AND TREATMENT PROBLEM #1-SUICIDAL IDEATIONS R/T DEPRESSED MOOD AND PROBLEM #2, FALL RISK, PROBLEMS RESOLVED.
--- NOTE | 2017-06-27 12:47 | NUR ---
Music Therapy/Reminisce/Trivia Patient was in attendence for group as well as particpated. Patient was anxious due to being discharged today and wanted to go home.Patient did not interupt or talk over anyone today. Patient was appropriate in her actions
--- NOTE | 2017-06-27 13:07 | NUR ---
Trevor from [facility] ([phone]). SW returned and left VM that Pt was being dicharaged today.
--- NOTE | 2017-06-27 13:10 | NUR ---
ROSY verified with recpeiotnist appointmnet fr Pt on 07/07 with Steph at 9am. Pt can scheduled follow up with MACHINE RUG CLEANER on per dental receptionist.
--- NOTE | 2017-06-27 15:10 | NUR ---
PT DISCHARGED TO HOME VIA [facility].
--- NOTE | 2017-06-27 15:30 | NUR ---
Craft and self esteem group Patient attended group and engaged in self esteem activity. Patient able to state self qualities they find about themselves along with ways to decrease stress/anxiety in life. Patient declined to complete craft stating " Im waiting to go home. They should be here anytime to pick me up." When another patient left group to leave for home patients anxiety and frusteration increased disrupting the group. AC attempted to calm patient and discuss techniques for handling certain situations they cant control however patient over talked AC and attempted to take over group with behavior. Patient eventually left activity room and calmed in a quiet area. Patient displays poor difficulty with coping skills.
--- NOTE | 2017-06-27 16:17 | NUR ---
ABBY FROM THE [facility] REPORTING THAT PT CAN SEE ROLLER STITCHER ZION HENRIQUEZ ON 07/06 AT 9:30AM.
--- NOTE | 2017-06-27 16:19 | NUR ---
[facility] LIST BE FAXED [phone].
--- NOTE | 2017-06-27 16:20 | NUR ---
PT DISCHARGED HOME VIA [facility] - PROVIDE A RIDE. SW GAVE APPT TO PT ON HER WAY OUT THE DOOR FOR [facility] ZION HENRIQUEZ NP ON 07-06 AT 9:30AM. FOLLOW UPS ARE WITH DR. MCKINNEY 07-04 AT 5PM, [facility] Gregg GERMAIN 07-07 AT 9AM.
--- NOTE | 2017-06-28 16:48 | NUR ---
Warp Spooler Note: faxed discharfed info to the [facility] in [place] and [facility] for Dr. Quinn today.
== END 2017-06-27 15:10 | disposition home or self-care (01) | DRG 885 ==
LOC: ED 08:37 → EDHOLD 11:21 → 3N 11:21
PROVIDERS: Internal Medicine; ADMIT Psychiatry & Neurology Psychiatry
DX: F31.30 Bipolar disorder, current episode depressed, mild or moderate severity, unspecified (principal); M41.9 Scoliosis, unspecified; F23 Brief psychotic disorder; G40.909 Epilepsy, unspecified, not intractable, without status epilepticus; E03.9 Hypothyroidism, unspecified; G89.29 Other chronic pain; M19.90 Unspecified osteoarthritis, unspecified site; F41.9 Anxiety disorder, unspecified; E87.6 Hypokalemia; K44.9 Diaphragmatic hernia without obstruction or gangrene; K22.70 Barrett's esophagus without dysplasia; K29.70 Gastritis, unspecified, without bleeding; R74.8 Abnormal levels of other serum enzymes; M54.9 Dorsalgia, unspecified; R51 Headache; F90.9 Attention-deficit hyperactivity disorder, unspecified type; F17.210 Nicotine dependence, cigarettes, uncomplicated; Z88.0 Allergy status to penicillin; Z88.8 Allergy status to other drugs, medicaments and biological substances; Z91.030 Bee allergy status; Z98.49 Cataract extraction status, unspecified eye; Z98.891 History of uterine scar from previous surgery; Z83.3 Family history of diabetes mellitus; Z82.49 Family history of ischemic heart disease and other diseases of the circulatory system; Z82.61 Family history of arthritis; Z81.8 Family history of other mental and behavioral disorders; Z83.79 Family history of other diseases of the digestive system; Z84.1 Family history of disorders of kidney and ureter; Z91.14 Patient's other noncompliance with medication regimen; Z71.6 Tobacco abuse counseling; Z79.82 Long term (current) use of aspirin; Z79.899 Other long term (current) drug therapy

== ENCOUNTER 2017-07-18 08:42 | Inpatient (IN) | payer OTHER ==
[~2017-07-18] VITALS: Ht 152.4 cm; Wt 65.9 kg
[~2017-07-18 08:42] MED LIST changes: +HYDROXYZINE PAM25 M1 PO; +OLANZAPINE5 MG PO; +Synthroid,Levo25 MCG PO; +VISTARIL50 MG PO; +Vitamin D PO; +ZANAFLEX4 M1 PO; +ZANAFLEX6 M1 PO; +ZYPREXA2.5 MG PO
[2017-07-18 08:54] VITALS: BP 140/91
--- NOTE | 2017-07-18 09:05 | NUR ---
PATIENT SCREAMING OUT " I AM CRAZY, I AM CRAZY", CONTINUING TO MONITOR THE PATIENT CLOSELY. HAYDEE MCFADDEN PATIENT DENIES ANY SUICIDAL OR HOMICIDAL IDEATIONS AT THIS TIME. HAYDEE WARD
--- NOTE | 2017-07-18 09:10 | NUR ---
PATIENT STATES "I AM CRAZY AND THATS WHY I KEEP COMING BACK, DO YOU KNOW THE DEFINITION OF CRAZY IT IS WHERE YOU KEEP COIMING BACK TO THE SAME PLACE AND EXPECTING A DIFFERENT RESULT". LESARN
--- NOTE | 2017-07-18 09:15 | NUR ---
PATIENT STATES THAT SHE IS CALLING UPSTAIRS, PATIENT STATE "I AM TAKING TO THE PSYCH FLOOR, AND I AM TALKING TO ARMEN", PATIENT IS CURRENTLY ON THE PHONE. HAYDEE MCFADDEN
[2017-07-18 09:17] LABS: BASO # 0.1 10*3/uL (0.0-0.1); BASO % 0.8 % (0.0-1.0); EOS # 0.7 10*3/uL (0.0-0.4); EOS % 10.6 % (1.0-4.0); HEMATOCRIT 41.5 % (37.0-47.0); HEMOGLOBIN 13.5 g/dl (12.0-16.0); LYMPH # 2.3 10*3/uL (1.3-4.4); LYMPH % 34.3 % (27.0-41.0); MEAN CELL VOLUME 89.8 fl (81.0-99.0); MEAN CORPUSCULAR HGB 29.2 pg (27.0-31.0); MEAN CORPUSCULAR HGB CONC 32.5 g/dl (33.0-37.0); MEAN PLATELET VOLUME 9.6 fl (9.6-12.3); MONO # 0.6 10*3/uL (0.1-1.0); MONO % 9.2 % (3.0-9.0); NEUT % 44.8 % (47.0-73.0); PLATELET COUNT AUTOMATED 273 10*3/uL (130-400); RED BLOOD COUNT 4.62 10*6/uL (4.10-5.10); RED CELL DISTRI WIDTH 13.8 % (0-14.5); WHITE BLOOD COUNT 6.6 10*3/uL (4.8-10.8)
[2017-07-18 09:23] LABS: BILIRUBIN NEGATIVE (NEGATIVE); BLOOD NEGATIVE (NEGATIVE); CLARITY SL CLOUDY (CLEAR); COLOR YELLOW (YELLOW); GLUCOSE NEGATIVE (NEGATIVE); KETONE TRACE (NEGATIVE); LEUKO ESTERASE NEGATIVE (NEGATIVE); NITRITE NEGATIVE (NEGATIVE); PH 5.5 (5.0-9.0); SPECIFIC GRAVITY >= 1.030 (1.005-1.030); UROBILINOGEN 0.2 E.U./dl (0.2-1.0)
--- NOTE | 2017-07-18 09:31 | NUR ---
PATIENT IS SCREAMING OUT "I HATE YOU ANDREW". HAYDEE MCFADDEN
[2017-07-18 09:33] LABS: ALBUMIN 3.5 gm/dl (3.1-4.5); ALKALINE PHOSPHATASE 243 U/L (45-117); BUN 15 mg/dl (7-24); CHLORIDE 106 mmol/L (98-107); CREATININE 0.82 mg/dL (0.55-1.02); LIPASE 129 U/L (73-393); POTASSIUM 3.7 mmol/L (3.5-5.1); SGOT/AST 14 IU/L (3-35); SGPT/ALT 25 U/L (12-78); SODIUM 139 mmol/L (136-145); TOTAL PROTEIN 7.9 gm/dL (6.4-8.2)
[2017-07-18 09:33] LABS: MUCOUS 1+
[2017-07-18 09:39] LABS: URINE AMPHETAMINES < 1000 (1000ng/ml); URINE BARBITURATES > 200 (200ng/ml); URINE BENZODIAZEPINES > 200 (200ng/ml); URINE CANNABINOIDS (THC) < 50 (50ng/ml); URINE COCAINE < 300 (300ng/ml); URINE METHADONE < 300 (300ng/ml); URINE OPIATES > 300 (300ng/ml)
[2017-07-18 09:40] LABS: URINE PHENCYCLIDINE < 25 (25ng/ml)
[2017-07-18 09:42] LABS: ETHYL ALCOHOL < 3.0 mg/dl (<3); THYROID STIM HORMONE (HS) 0.712 uIU/ml (0.358-4.75)
[2017-07-18 10:30] VITALS: BP 132/80
--- NOTE | 2017-07-18 10:38 | NUR ---
PATIENT IS ALERT AND ORIENTED X3, SKIN IS PINK, WARM, AND DRY, RESPIRATIONS ARE EASY AND NONLABORED, PATIENT IS RESTING IN BED, CALL LIGHT IN REACH OF THE PATIENT, PATIENT REMAINS VERY AGITATED, BUT IS RESTING IN BED AT THIS TIME, CAONTINUING TO MONITOR THE PATIENT. LESA,RN
--- NOTE | 2017-07-18 11:20 | NUR ---
PATINT TAKEN TO ROOM 426-1 PLACED IN THE BED, EMELY ESTRADA AT BEDSIDE. HAYDEE MCFADDEN
[2017-07-18 11:23] VITALS: BP 122/79
--- NOTE | 2017-07-18 11:32 | NUR ---
MSADMTime: N A 72 year old FEMALE admitted to 4E under services of DREAD LOPEZ DO. Pt. arrived via bed from ER. Chief complaint: ABDIMINAL PAIN. JED LEWIS
[2017-07-18] MEDS ORDERED: PHENOBARBITAL PO (11:45)
[2017-07-18] MEDS ORDERED: DICYCLOMINE HCL20 MG PO (12:03)
[2017-07-18] MEDS ORDERED: MIRTAZAPINE15 M2 PO (12:04)
[2017-07-18] MEDS ORDERED: ZYPREXA2.5 MG PO (12:04)
[2017-07-18] MEDS ORDERED: OLANZAPINE5 MG PO (12:05)
[2017-07-18] MEDS ORDERED: CONSTULOSE10 GM/151 PO (12:08)
--- NOTE | 2017-07-18 13:14 | NUR ---
PRN PAIN MED GIVEN FOR 8/10 RUQ ABDOMEN PAIN.
--- NOTE | 2017-07-18 13:15 | NUR ---
prn zofran given for nausea.
--- NOTE | 2017-07-18 13:20 | NUR ---
PRN LOMOTIL GIVEN FOR DIARRHEA.
--- NOTE | 2017-07-18 14:14 | NUR ---
prn lomotol appears effective, pt denies diarrhea.
--- NOTE | 2017-07-18 14:14 | NUR ---
prn pain med minimally effective, pt reporting 7/10 pain.
--- NOTE | 2017-07-18 14:15 | NUR ---
prn chapo not effective, pt states she vomited sm amt liqid after eating her liquid tray. patient will stay npo until dinner.
--- NOTE | 2017-07-18 14:59 | NUR ---
PRN PAIN MED GIVEN FOR 7/10 RUQ ABDOMEN PAIN.
--- NOTE | 2017-07-18 15:57 | NUR ---
PRN PAIN MED APPEARS EFFECTIVE, PT IS SLEEPING, RESPIRATIONS EASY AND REGULAR.
[2017-07-18 16:00] VITALS: BP 126/81
--- NOTE | 2017-07-18 17:50 | NUR ---
PRN PAIN MED GIVEN FOR 7/10 RUQ ABDOMEN.
--- NOTE | 2017-07-18 17:50 | NUR ---
PT REQUESTING PRN PAIN MEDICATION, ADMINISTERED NORCO PRN PO PER ORDERS, REPORTS ABDOMINAL PAIN, WILL MONITOR EFFECTS
--- NOTE | 2017-07-18 18:50 | NUR ---
PT REPORTS THAT PRN PAIN MEDICATION EFFECTIVE AT THIS TIME, PT NO LONGER C/O ABDOMINAL PAIN
--- NOTE | 2017-07-18 19:00 | NUR ---
PRN PAIN MED MINIMALLY EFFECTIVE, PT STILL RATING HER PAIN 7/10, COMFORT MEASURES INITIATED.
--- NOTE | 2017-07-18 19:44 | NUR ---
PHONE CALL FROM [facility] STATING PT CALLED THEM COMPLAINING THAT WE ARE KEEPING HER DOPED UP AND WILL NOT GIVE HER ANY THING TO EAT.ON ASSESSMENT PT IS ALERT AND ORIENTED. REFER TO NOTES FOR PAIN MED SCHEDULE., PT IS CLEAR LIQUID DIET. SHE IS TO GO NPO AFTERMIDNIGHT FOR A HEPATOBILIARY SCAN IN AM.
[2017-07-18 20:00] VITALS: BP 97/65
--- NOTE | 2017-07-18 21:30 | NUR ---
PT REQUESTING MEDICATION TO ASSIST WITH SLEEPING, STATES THAT SHE NEEDS HER RESTORIL AT THIS, ADMISNTERED ORDERED WILL MONITOR EFFECTS
--- NOTE | 2017-07-18 21:35 | NUR ---
IV started left hand with #22 protective cath after 2 attempts. Site prepped with Chloroprep. Sterile dressing applied. Patient tolerated procedure well SEAN MARQUES L
[2017-07-19] VITALS: BP 105/639; BP 105/69; BP 128/69
[2017-07-19 06:23] LABS: BASO # 0.1 10*3/uL (0.0-0.1); BASO % 1.3 % (0.0-1.0); EOS # 0.7 10*3/uL (0.0-0.4); EOS % 11.8 % (1.0-4.0); HEMATOCRIT 36.5 % (37.0-47.0); HEMOGLOBIN 11.6 g/dl (12.0-16.0); LYMPH # 2.2 10*3/uL (1.3-4.4); LYMPH % 38.4 % (27.0-41.0); MEAN CELL VOLUME 91.3 fl (81.0-99.0); MEAN CORPUSCULAR HGB CONC 31.8 g/dl (33.0-37.0); MEAN PLATELET VOLUME 9.9 fl (9.6-12.3); MONO # 0.7 10*3/uL (0.1-1.0); MONO % 11.6 % (3.0-9.0); NEUT % 36.4 % (47.0-73.0); PLATELET COUNT AUTOMATED 224 10*3/uL (130-400); RED CELL DISTRI WIDTH 13.9 % (0-14.5); WHITE BLOOD COUNT 5.6 10*3/uL (4.8-10.8)
[2017-07-19 06:39] LABS: ALBUMIN 3.2 gm/dl (3.1-4.5); ALKALINE PHOSPHATASE 189 U/L (45-117); BUN 14 mg/dl (7-24); CHLORIDE 105 mmol/L (98-107); CREATININE 0.73 mg/dL (0.55-1.02); PHOSPHOROUS 2.9 mg/dL (2.5-4.9); POTASSIUM 3.4 mmol/L (3.5-5.1); SGOT/AST 12 IU/L (3-35); SGPT/ALT 19 U/L (12-78); SODIUM 140 mmol/L (136-145); TOTAL PROTEIN 6.3 gm/dL (6.4-8.2)
--- NOTE | 2017-07-19 07:44 | NUR ---
CALLED DR. SINCLAIR MADE AWARE PT HAVING BIZZARE BEHAVIOR, YELLING AND SCREAMING THAT WE AREN'T HELPING HER. TRIED TO COMFORT PT AND EXPLAIN WHY SHE CANT EAT BECAUSE OF TEST. SHE IS WALKING THE HALLS DRESSED AND THREATENING TO LEAVE AMA.
[2017-07-19 08:00] VITALS: BP 110/67
--- NOTE | 2017-07-19 08:05 | NUR ---
SAT WITH PT FOR AWHILE AND TALKED SHE IS CALM. ESCORTED VIA WHEELCHAIR TO RADIOLOGY FOR TEST.
--- NOTE | 2017-07-19 08:36 | NUR ---
GOSPEL SINGER VS. PT NOT IN ROOM.
--- NOTE | 2017-07-19 09:41 | NUR ---
DR. AHUJA INTO SEE PT.
--- NOTE | 2017-07-19 09:50 | NUR ---
PATIENT WAS GIVEN NORCO PER PATIENT REQUEST FOR PAIN RATED A 10/10 LOCATED IN THE RUQ AND RLQ OF ABDOMEN. PAIN DESCRIBED A SHARP STABBING PAIN. WILL CONTINUE TO MONITOR AND REASSESS.
--- NOTE | 2017-07-19 10:34 | NUR ---
SPOKE TO DR. REESE ABOUT THE PHYSICIAN CONSULT FOR RUQ AND HYPERCONTRACTILITY OF GALLBLADDER. NO ORDERS GIVEN AT THIS TIME.
--- NOTE | 2017-07-19 11:20 | NUR ---
SPOKE WITH DR. REESE REGARDING CONSULT BEING CANCELLED.
[2017-07-19 12:00] VITALS: BP 107/49
--- NOTE | 2017-07-19 13:28 | NUR ---
Discharge instructions reviewed with patient/family. Patient receptive and verbalizes understanding. Follow-up care arranged WITH PATIENT. Written instructions given to patient/family. PATIENT WALKED OFF OF FLOOR INDEPENDENTLY, AND IS BEING TRANSPORTED VIA [facility]. JESUS PATEL
== END 2017-07-19 13:28 | disposition home or self-care (01) | DRG 445 ==
LOC: ED 08:42 → 4E 10:12 → EDHOLD 10:12 → 4E 10:18
PROVIDERS: Emergency Medicine; Student in an Organized Health Care Education/Training Program; ADMIT Internal Medicine
DX: K82.8 Other specified diseases of gallbladder (principal); F33.40 Major depressive disorder, recurrent, in remission, unspecified; G62.9 Polyneuropathy, unspecified; K80.50 Calculus of bile duct without cholangitis or cholecystitis without obstruction; M41.9 Scoliosis, unspecified; K44.9 Diaphragmatic hernia without obstruction or gangrene; M54.30 Sciatica, unspecified side; K29.70 Gastritis, unspecified, without bleeding; K22.719 Barrett's esophagus with dysplasia, unspecified; E03.9 Hypothyroidism, unspecified; M51.26 Other intervertebral disc displacement, lumbar region; F17.210 Nicotine dependence, cigarettes, uncomplicated; M19.90 Unspecified osteoarthritis, unspecified site; F90.9 Attention-deficit hyperactivity disorder, unspecified type; F60.3 Borderline personality disorder; G40.909 Epilepsy, unspecified, not intractable, without status epilepticus; Z71.6 Tobacco abuse counseling; Z88.0 Allergy status to penicillin; Z88.8 Allergy status to other drugs, medicaments and biological substances; Z91.030 Bee allergy status; Z79.82 Long term (current) use of aspirin; Z79.899 Other long term (current) drug therapy; Z84.1 Family history of disorders of kidney and ureter; Z81.8 Family history of other mental and behavioral disorders; Z83.3 Family history of diabetes mellitus; Z82.49 Family history of ischemic heart disease and other diseases of the circulatory system; Z82.61 Family history of arthritis; Z84.89 Family history of other specified conditions

== ENCOUNTER 2017-07-20 11:36 | Inpatient (IN) | payer OTHER ==
[~2017-07-20] VITALS: Ht 154.9 cm; Wt 65.3 kg
--- NOTE | ~2017-07-20 | O ---
[place], [place] OPERATIVE NOTE [id number] #[facility] [id number] ROOM: 404 DOCTOR: ELIEL HERNANDES MD BIRTHDATE: [birth year] DOS: 07/21/2017 PREOPERATIVE DIAGNOSIS: Biliary dyskinesia. POSTOPERATIVE DIAGNOSIS: Biliary dyskinesia. PROCEDURE: Laparoscopic cholecystectomy. SURGEON: Eliel Hernandes M.D. SOLE SEWER HAND: EMILIANO. ANESTHESIA: General with endotracheal intubation. INDICATIONS: This is a 62-year-old lady with a history of biliary dyskinesia who is here for the above-mentioned procedure. The procedure and its complications were explained to the patient in detail preoperatively. Complications that were discussed included but were not limited to bleeding, infection, hematoma/seroma/abscess formation, biloma formation, prolonged postoperative pain, damage to underlying vital structures and incisional hernia formation. She agreed to proceed. DESCRIPTION OF PROCEDURE: After identifying the patient, the patient was brought to the operating suite and laid in the supine position. After induction of general anesthesia, the parts were painted and draped in the usual sterile fashion and a time-out procedure was called. An incision was made in a transverse fashion below the umbilicus. The skin and the subcutaneous tissue were incised in the line of the incision. The fascia was incised vertically and 2 stay sutures with 0 Vicryl were taken on either side. The pneumoperitoneum was opened and a 12 mm Bhargavi port was introduced and pneumoperitoneum was created. Under direct vision, an epigastric incision of 10 mm and two 5 mm incisions were made in the right upper quadrant and appropriate size ports were introduced. The gallbladder was retracted superiorly and laterally. The cystic duct and the cystic artery were meticulously dissected and were clipped 3 times and cut between the first and the second clip after the critical view of safety was obtained. Thereafter, the gallbladder was retracted from the liver bed with the help of electrocautery and placed in an EndoCatch bag and removed from the peritoneal cavity. It was sent for histopathological diagnosis. Hemostasis was confirmed in the liver bed. Thereafter, the right upper quadrant and epigastric ports were removed and there was no bleeding seen. The umbilical port was also removed and the pneumoperitoneum was decompressed. The fascial defect was approximated with the help of 0 Vicryl in a [id number] stitch. The skin edges were approximated with the help of 4-0 Vicryl in a subcuticular running fashion after the edges of the skin were infiltrated with 1% plain lidocaine. Dressings were placed. The patient tolerated the procedure well. There were no complications. Dr. Eliel Hernandes, the attending surgeon, was present throughout the operating case. [place], [place] OPERATIVE NOTE NAME: COLT GUERRIER I UNIT #: [id number] ROOM: 404 DOCTOR: ELIEL HERNANDES MD BIRTHDATE: [birth year] Eliel Hernandes MD CM:OPRECORD:OPERATIVE NOTE 1011 1323 ELIEL HERNANDES MD 07/21/17 1321 interface
[2017-07-20 11:36] VITALS: BP 120/78
[~2017-07-20 11:36] MED LIST changes: +CONSTULOSE10 GM/151 PO; +PHENOBARBITAL PO
[2017-07-20 12:03] LABS: BASO # 0.1 10*3/uL (0.0-0.1); BASO % 1.1 % (0.0-1.0); EOS # 0.5 10*3/uL (0.0-0.4); EOS % 8.2 % (1.0-4.0); HEMATOCRIT 37.3 % (37.0-47.0); HEMOGLOBIN 12.4 g/dl (12.0-16.0); LYMPH # 2.1 10*3/uL (1.3-4.4); LYMPH % 34.2 % (27.0-41.0); MEAN CELL VOLUME 89.7 fl (81.0-99.0); MEAN CORPUSCULAR HGB 29.8 pg (27.0-31.0); MEAN CORPUSCULAR HGB CONC 33.2 g/dl (33.0-37.0); MEAN PLATELET VOLUME 8.9 fl (9.6-12.3); MONO # 0.5 10*3/uL (0.1-1.0); MONO % 8.2 % (3.0-9.0); NEUT % 47.8 % (47.0-73.0); PLATELET COUNT AUTOMATED 240 10*3/uL (130-400); RED BLOOD COUNT 4.16 10*6/uL (4.10-5.10); RED CELL DISTRI WIDTH 13.8 % (0-14.5); WHITE BLOOD COUNT 6.3 10*3/uL (4.8-10.8)
[2017-07-20 12:18] LABS: ALBUMIN 3.5 gm/dl (3.1-4.5); ALKALINE PHOSPHATASE 214 U/L (45-117); BUN 14 mg/dl (7-24); CHLORIDE 107 mmol/L (98-107); CREATININE 0.72 mg/dL (0.55-1.02); LIPASE 159 U/L (73-393); POTASSIUM 3.8 mmol/L (3.5-5.1); SGOT/AST 12 IU/L (3-35); SGPT/ALT 22 U/L (12-78); SODIUM 141 mmol/L (136-145)
[2017-07-20 13:00] VITALS: BP 104/79
--- NOTE | 2017-07-20 13:00 | NUR ---
Time: 1300 A 62 year old female admitted to 4E under services of DREAD LOPEZ DO. Pt. arrived via bed from ER. Chief complaint: biliary colic. TODD FRANKLIN
--- NOTE | 2017-07-20 13:10 | NUR ---
MEDS VERIFIED WITH PT.
--- NOTE | 2017-07-20 13:25 | NUR ---
SPOKE WITH LOPEZ HO SHE IS TO STAY NPO.
--- NOTE | 2017-07-20 13:31 | NUR ---
CALLED DR. REESE AWARE OF CONSULT. KEEP NPO AND IVF AND HE WILL SEE HER TOMORROW.
--- NOTE | 2017-07-20 13:43 | NUR ---
PATIENT GIVEN DILAUDID FOR PAIN RATED 9/10 IN THE RUQ AND RLQ OF ABDOMEN. PATIENT DESCRIBES PAIN SHARP AND STABBING. WILL CONTINUE TO MONITOR AND REASSESS.
--- NOTE | 2017-07-20 13:56 | NUR ---
SPOKE WITH LOPEZ MADE AWARE PT HASN'T TAKEN ANY HOME MEDICATIONS TODAY. SHE IS GOING TO LOOK AT THEM.
--- NOTE | 2017-07-20 14:30 | NUR ---
PATIENT RESTING SOUNDLY IN ROOM, PATIENT HAS NO FURTHER COMPLAINT OF ABDOMINAL PAIN AT THIS TIME, WILL CONTINUE TO MONITOR.
[2017-07-20 14:34] LABS: BILIRUBIN NEGATIVE (NEGATIVE); BLOOD NEGATIVE (NEGATIVE); CLARITY SL CLOUDY (CLEAR); COLOR YELLOW (YELLOW); GLUCOSE NEGATIVE (NEGATIVE); KETONE NEGATIVE (NEGATIVE); LEUKO ESTERASE NEGATIVE (NEGATIVE); NITRITE NEGATIVE (NEGATIVE); SPECIFIC GRAVITY 1.025 (1.005-1.030); UROBILINOGEN 0.2 E.U./dl (0.2-1.0)
[2017-07-20 14:43] LABS: BACTERIA TRACE; HYALINE CAST 0-2; MUCOUS 1+
--- NOTE | 2017-07-20 15:47 | NUR ---
TALKED TO LOPEZ ABOUT NICOTINE PATCH FOR PATIENT.
[2017-07-20 16:00] VITALS: BP 111/57
--- NOTE | 2017-07-20 16:27 | NUR ---
CALLED DR. REESE PER HIM OKAY TO BE NPO EXCEPT MEDICATIONS.
--- NOTE | 2017-07-20 16:33 | NUR ---
TALKED TO LOPEZ HO WHILE SHE WAS ON FLOOR. MADE AWARE OF PATIENT BEING NPO EXCEPT FOR MEDICATIONS.
--- NOTE | 2017-07-20 17:52 | NUR ---
PATIENT WAS GIVEN ANDRAE PER REQUEST AND PATIENT HAS NO FURTHER REQUESTS AT THIS TIME. PATIENT PAIN LEVEL IS A 4/10 AND BEARABLE. WILL CONTINUE TO MONITOR.
--- NOTE | 2017-07-20 18:19 | NUR ---
PATIENT IS RESTING IN BED. PATIENT HAS EPISODES OF ANXIETY AND CRYING. PATIENT HAS A HX OF MENTAL ISSUES. PATIENT HAS RECURRENT RUQ AND RLQ ABDOMINAL PAIN THAT RADIATES TO THE RIGHT CHEST. PATIENT HAS HAD INDIGESTION, BUT DENIES NAUSEA SINCE ARRIVING ON THE FLOOR. HOB IS ELEVATED, CALL LIGHT IS WITHIN REACH. SEE SHIFT ASSESSMENT.
--- NOTE | 2017-07-20 19:59 | NUR ---
1946 MEDICATED WITH DILAUDID 0.5MG IV FOR C/O'S RUQ PAIN. RATES PAIN A "10". WILL MONITOR.
[2017-07-20 20:00] VITALS: BP 114/78
--- NOTE | 2017-07-20 20:15 | NUR ---
EARLIER PAIN MED EFFECTIVE. IV FLUIDS CONT. REMAINS NPO. NO DISTRESS NOTED. RESTING IN BED WITH EYES CLOSED.
[2017-07-21] VITALS (9 sets, daily range): BP systolic 112–166; BP diastolic 62–97
--- NOTE | 2017-07-21 02:17 | NUR ---
PATIENT MEDICATED WITH PRN DILAUDID FOR ABD PAIN RATED 8/10 ON A 0/10 PAIN SCALE.
[2017-07-21 06:08] LABS: BASO # 0.1 10*3/uL (0.0-0.1); BASO % 1.2 % (0.0-1.0); EOS # 0.7 10*3/uL (0.0-0.4); HEMATOCRIT 37.1 % (37.0-47.0); HEMOGLOBIN 12.2 g/dl (12.0-16.0); LYMPH # 2.3 10*3/uL (1.3-4.4); LYMPH % 39.4 % (27.0-41.0); MEAN CELL VOLUME 90.9 fl (81.0-99.0); MEAN CORPUSCULAR HGB 29.9 pg (27.0-31.0); MEAN CORPUSCULAR HGB CONC 32.9 g/dl (33.0-37.0); MEAN PLATELET VOLUME 9.9 fl (9.6-12.3); MONO # 0.6 10*3/uL (0.1-1.0); MONO % 10.8 % (3.0-9.0); NEUT # 2.1 10*3/uL (2.3-7.9); NEUT % 36.1 % (47.0-73.0); PLATELET COUNT AUTOMATED 233 10*3/uL (130-400); RED BLOOD COUNT 4.08 10*6/uL (4.10-5.10); WHITE BLOOD COUNT 5.8 10*3/uL (4.8-10.8)
[2017-07-21 06:29] LABS: ALBUMIN 3.2 gm/dl (3.1-4.5); ALKALINE PHOSPHATASE 208 U/L (45-117); BUN 10 mg/dl (7-24); CHLORIDE 106 mmol/L (98-107); CREATININE 0.73 mg/dL (0.55-1.02); POTASSIUM 3.8 mmol/L (3.5-5.1); SGOT/AST 11 IU/L (3-35); SGPT/ALT 18 U/L (12-78); SODIUM 140 mmol/L (136-145); TOTAL PROTEIN 6.5 gm/dL (6.4-8.2)
[2017-07-21 06:49] LABS: ACT PARTIAL THROMBO TIME 26.5 SECONDS (20.8-31.5)
--- NOTE | 2017-07-21 07:40 | NUR ---
PATIENT IS AWAKE AND ALERT AND SITTING UP IN THE BED. PATIENT VERBALIZES FEELING ANXIOUS ABOUT CHOLECYSTECTOMY SCHEDULED FOR THIS MORNING. PATIENT IS ALSO COMPLAINING OF RUQ/RLQ ABDOMEN PAIN. PATIENT IS AMBULATORY AND DENIES DIZZINESS, SOB OR CP. HOB ELEVATED, CALL LIGHT WITHIN REACH. SEE SHIFT ASSESSMENT.
--- NOTE | 2017-07-21 07:50 | NUR ---
PATIENT OFF THE FLOOR VIA BED FOR SURGERY.
--- NOTE | 2017-07-21 08:30 | NUR ---
STAFF FORESTER VS. PT IN SURGERY.
--- NOTE | 2017-07-21 11:32 | NUR ---
PATIENT IS BACK ON THE FLOOR FROM SURGERY VIA BED.
--- NOTE | 2017-07-21 13:12 | NUR ---
PT UP IN HALLWAY WALKING. NO C/O AT THIS TIME. CALL LIGHT IN REACH.
--- NOTE | 2017-07-21 13:45 | NUR ---
PATIENT GIVEN DILAUDID PER PT REQUST FOR ABDOMINAL PAIN RATED A 8/10. WILL CONTINUE TO MONITOR AND REASSESS.
[2017-07-21] MEDS ORDERED: OLANZAPINE5 MG PO (14:12)
--- NOTE | 2017-07-21 14:17 | NUR ---
Discharge instructions reviewed with patient/family. Patient receptive and verbalizes understanding. Follow-up care arranged. Written instructions given to patient/family. PT VOICED PASSING FLATUS. TODD FRANKLIN
--- NOTE | 2017-07-21 15:07 | NUR ---
Discharge instructions reviewed with patient/family. Patient receptive and verbalizes understanding. Follow-up care arranged WITH PCP IN 1 WEEK AND FOLLOW UP WITH DR. REESE IN 1-2 WEEKS. Written instructions given TO PATIENT. PATIENT AMBULATED OFF OF FLOOR. JESUS PATEL
== END 2017-07-21 15:07 | disposition home or self-care (01) | DRG 418 ==
LOC: ED 11:36 → EDHOLD 12:02 → 4E 12:02
PROVIDERS: Emergency Medicine; Registered Nurse; ADMIT Internal Medicine
PROC: 0FT44ZZ Resection of Gallbladder, Percutaneous Endoscopic Approach (ICD-10-PCS; principal; 2017-07-21)
DX: K82.8 Other specified diseases of gallbladder (principal); F50.2 Bulimia nervosa; G62.9 Polyneuropathy, unspecified; K80.50 Calculus of bile duct without cholangitis or cholecystitis without obstruction; F31.30 Bipolar disorder, current episode depressed, mild or moderate severity, unspecified; F90.9 Attention-deficit hyperactivity disorder, unspecified type; M19.90 Unspecified osteoarthritis, unspecified site; K22.70 Barrett's esophagus without dysplasia; M54.40 Lumbago with sciatica, unspecified side; F60.3 Borderline personality disorder; F17.210 Nicotine dependence, cigarettes, uncomplicated; G89.29 Other chronic pain; E03.9 Hypothyroidism, unspecified; G40.909 Epilepsy, unspecified, not intractable, without status epilepticus; Z98.42 Cataract extraction status, left eye; Z98.41 Cataract extraction status, right eye; Z84.1 Family history of disorders of kidney and ureter; Z91.030 Bee allergy status; Z88.0 Allergy status to penicillin; Z91.09 Other allergy status, other than to drugs and biological substances; Z79.82 Long term (current) use of aspirin; Z79.899 Other long term (current) drug therapy

== ENCOUNTER → 2017-11-03 | Outpatient (CLI) | payer OTHER | END | disposition home or self-care (01) | LOC: MAMMO 07:45 | DX: Z12.31 Encounter for screening mammogram for malignant neoplasm of breast (principal); M47.896 Other spondylosis, lumbar region; M41.86 Other forms of scoliosis, lumbar region ==

== ENCOUNTER 2019-01-30 16:04 | Emergency (ER) | payer OTHER ==
[~2019-01-30] VITALS: Wt 64.4 kg
--- NOTE | ~2019-01-30 | EKG ---
[place], [place] ELECTROCARDIOGRAM REPORT NAME: COLT GUERRIER I UNIT #: [id number] ROOM: DOCTOR: EPIPHANY DRAFT REPORT BIRTHDATE: [birth year] [facility] Test Date: 2019-01-30 Test Time: 16:52:13 Pat Name: COLT GUERRIER Department: Room: Gender: F Bail Agent: iVcky Mckeon : 1955 Requested By: CINTHYA COX Order Number: [id number] Reading MD: Arsenio Moncada MD Measurements Intervals [employer] Rate: 72 P: 49 VT: 140 QRS: 8 QRSD: 97 T: 41 QT: 418 QTc: 458 Interpretive Statements Sinus rhythm Abnormal R-wave progression, late transition No previous ECG available for comparison Electronically Signed On 02-02-2019 9:37:37 PDT by Arsenio Moncada MD CM:EKGRPT:ELECTROCARDIOGRAM REPORT [id number] CINTHYA REEVES DRAFT REPORT CINTHYA COX MD
== END 2019-01-30 17:03 | disposition home or self-care (01) ==
LOC: ED 16:04
DX: M54.6 Pain in thoracic spine (principal); M25.512 Pain in left shoulder; M54.2 Cervicalgia; G89.29 Other chronic pain; E03.9 Hypothyroidism, unspecified; G40.909 Epilepsy, unspecified, not intractable, without status epilepticus; M19.90 Unspecified osteoarthritis, unspecified site; F17.210 Nicotine dependence, cigarettes, uncomplicated; Z91.030 Bee allergy status; Z88.0 Allergy status to penicillin; Z88.8 Allergy status to other drugs, medicaments and biological substances; Z79.82 Long term (current) use of aspirin; Z79.899 Other long term (current) drug therapy

== ENCOUNTER 2019-10-30 09:07 | Emergency (ER) | payer OTHER ==
[~2019-10-30] VITALS: Ht 152.4 cm; Wt 58.1 kg
[2019-10-30] MEDS ORDERED: CYCLOBENZAPRINE10 MG PO (10:51)
[2019-10-30] MEDS ORDERED: Motrin,Rufen800 MG PO (10:51)
== END 2019-10-30 11:06 | disposition home or self-care (01) ==
LOC: ED 09:07
DX: S46.912A Strain of unspecified muscle, fascia and tendon at shoulder and upper arm level, left arm, initial encounter (principal); F31.9 Bipolar disorder, unspecified; E03.9 Hypothyroidism, unspecified; K21.9 Gastro-esophageal reflux disease without esophagitis; F41.9 Anxiety disorder, unspecified; Z91.030 Bee allergy status; Z88.0 Allergy status to penicillin; Z79.899 Other long term (current) drug therapy; X58.XXXA Exposure to other specified factors, initial encounter; Y93.89 Activity, other specified; Y92.89 Other specified places as the place of occurrence of the external cause; Y99.8 Other external cause status

== ENCOUNTER → 2021-02-11 | Outpatient (CLI) | payer OTHER ==
[~2021-02-11] MED LIST changes: +Motrin,Rufen800 MG PO
== END | disposition home or self-care (01) ==
LOC: RAD 11:39
PROVIDERS: ATTEND Orthopaedic Surgery
DX: M25.552 Pain in left hip (principal)

== ENCOUNTER 2021-09-06 15:07 | Emergency (ER) | payer OTHER | END 2021-09-06 20:32 | disposition left against medical advice (07) | LOC: ED 15:07 | DX: Z53.21 Procedure and treatment not carried out due to patient leaving prior to being seen by health care provider (principal) ==

== ENCOUNTER → 2023-01-21 | Outpatient (CLI) | payer OTHER | END | disposition home or self-care (01) | LOC: CT 01-04 09:00 | PROVIDERS: ATTEND Internal Medicine | DX: Z12.2 Encounter for screening for malignant neoplasm of respiratory organs (principal); F17.210 Nicotine dependence, cigarettes, uncomplicated; J43.9 Emphysema, unspecified; K44.9 Diaphragmatic hernia without obstruction or gangrene; R91.1 Solitary pulmonary nodule ==

== ENCOUNTER 2024-11-28 17:12 | Emergency (ER) | payer OTHER ==
[~2024-11-28] VITALS: Ht 160 cm; Wt 65.3 kg
[~2024-11-28 17:12] MED LIST changes: +'KLONOPIN0.5 MG PO; +HYDROCODONE-AC1 EAC1 PO; +OMNICEF300 MG PO; +SEROQUEL50 MG PO; +VITAMIN D350 MCG PO
[2024-11-28] MEDS ORDERED: FAMOTIDINE 50 ML IV ONE (17:45)
[2024-11-28] MEDS ORDERED: SODIUM CHLORIDE 0.9% 1,000 ML IV ONE (17:45)
[2024-11-28] MEDS ORDERED: Ondansetron Hydrochloride 4 MG/2 ML VIAL IV ONE ×2 (17:45→19:05)
[2024-11-28] MEDS ORDERED: Ketorolac Tromethamine 30 MG/ML VIAL IV ONE (17:45)
[2024-11-28 18:03] LABS: BASO # 0.1 10*3/uL (0.0-0.1); EOS # 0.4 10*3/uL (0.0-0.4); EOS % 8.5 % (1.0-4.0); HEMATOCRIT 39.9 % (37.0-47.0); MEAN CELL VOLUME 96.4 fl (81.0-99.0); MEAN CORPUSCULAR HGB CONC 31.1 g/dl (33.0-37.0); MEAN PLATELET VOLUME 9.3 fl (9.6-12.3); MONO # 0.6 10*3/uL (0.1-1.0); MONO % 13.3 % (3.0-9.0); NEUT # 1.4 10*3/uL (2.3-7.9); NEUT % 29.7 % (47.0-73.0); PLATELET COUNT AUTOMATED 281 10*3/uL (130-400); RED BLOOD COUNT 4.14 10*6/uL (4.10-5.10); RED CELL DISTRI WIDTH 12.4 % (0-14.5); WHITE BLOOD COUNT 4.8 10*3/uL (4.8-10.8)
[2024-11-28 18:15] LABS: ACT PARTIAL THROMBO TIME 32.5 SECONDS (20.0-32.1)
[2024-11-28 18:33] LABS: ALKALINE PHOSPHATASE 181 U/L (46-116); BUN 13 mg/dl (9-23); CHLORIDE 104 mmol/L (98-107); CPK 45 U/L (34-171); LIPASE 47 U/L (12-53); POTASSIUM 4.2 mmol/L (3.4-5.1); SGPT/ALT 21 U/L (5-49); TOTAL PROTEIN 6.9 gm/dL (6.0-8.0)
[2024-11-28] MEDS ORDERED: IOHEXOL 350 MG/ML 100 ML VIAL IV ONE (18:50)
[2024-11-28] MEDS ORDERED: SODIUM CHLORIDE 0.9% 100 ML BAG IV ONE (18:50)
[2024-11-28 19:00] LABS: BILIRUBIN Negative (Negative); BLOOD Negative (Negative); CLARITY Clear (Clear); COLOR Yellow (Yellow); GLUCOSE Negative (Negative); KETONE Negative (Negative); LEUKO ESTERASE Negative (Negative); NITRITE Negative (Negative); PH 7.5 (4.5-8.0); UROBILINOGEN 0.2 E.U./dl (0.0-1.0)
[2024-11-28] MEDS ORDERED: fentaNYL CITRATE 100 MCG/2 ML VIAL IV ONE (19:05)
[2024-11-28 19:13] LABS: BACTERIA 1+; MUCOUS 2+; RBC 0-2 rbc/hpf (0-2)
== END 2024-11-28 20:25 | disposition home or self-care (01) ==
LOC: ED 17:12
PROVIDERS: Emergency Medicine
DX: K52.9 Noninfective gastroenteritis and colitis, unspecified (principal); K21.9 Gastro-esophageal reflux disease without esophagitis; F41.9 Anxiety disorder, unspecified; F31.9 Bipolar disorder, unspecified; M54.6 Pain in thoracic spine; I10 Essential (primary) hypertension; E11.9 Type 2 diabetes mellitus without complications; F17.200 Nicotine dependence, unspecified, uncomplicated; Z91.030 Bee allergy status; Z88.0 Allergy status to penicillin; Z88.8 Allergy status to other drugs, medicaments and biological substances; Z90.49 Acquired absence of other specified parts of digestive tract; Z90.89 Acquired absence of other organs; Z98.890 Other specified postprocedural states

== ENCOUNTER 2025-05-29 20:46 | Emergency (ER) | payer OTHER ==
[~2025-05-29] VITALS: Ht 160 cm; Wt 77.1 kg
[2025-05-29 21:48] LABS: BILIRUBIN Negative (Negative); BLOOD Negative (Negative); CLARITY Clear (Clear); COLOR Yellow (Yellow); KETONE Negative (Negative); LEUKO ESTERASE 1+ (Negative); NITRITE Negative (Negative); PH 7.0 (4.5-8.0); SPECIFIC GRAVITY >= 1.030 (1.001-1.030); UROBILINOGEN 0.2 E.U./dl (0.0-1.0)
[2025-05-29 21:53] LABS: URINE AMPHETAMINES Negative (1000ng/ml); URINE BARBITURATES Positive (200ng/ml); URINE BENZODIAZEPINES Negative (200ng/ml); URINE CANNABINOIDS (THC) Negative (50ng/ml); URINE COCAINE Negative (300ng/ml); URINE METHADONE Negative (300ng/ml); URINE OPIATES Positive (300ng/ml); URINE PHENCYCLIDINE Negative (25ng/ml)
[2025-05-29 21:55] LABS: BACTERIA 1+; EPITHELIAL CELLS 31-40; MUCOUS TRACE; RBC 0-2 rbc/hpf (0-2)
== END 2025-05-29 23:22 | disposition home or self-care (01) ==
LOC: ED 20:46
PROVIDERS: Nurse Practitioner Family
DX: Z04.3 Encounter for examination and observation following other accident (principal); F11.10 Opioid abuse, uncomplicated; R41.82 Altered mental status, unspecified; K21.9 Gastro-esophageal reflux disease without esophagitis; F41.9 Anxiety disorder, unspecified; E03.9 Hypothyroidism, unspecified; G47.30 Sleep apnea, unspecified; F31.9 Bipolar disorder, unspecified; Z91.030 Bee allergy status; Z88.0 Allergy status to penicillin; Z88.8 Allergy status to other drugs, medicaments and biological substances; Z98.890 Other specified postprocedural states; Z90.49 Acquired absence of other specified parts of digestive tract; Z90.89 Acquired absence of other organs; W19.XXXA Unspecified fall, initial encounter

== ENCOUNTER 2025-06-02 14:37 | Emergency (ER) | payer OTHER ==
[2025-06-02] MEDS ORDERED: SODIUM CHLORIDE 0.9% 1,000 ML IV ONE (14:40)
[2025-06-02] MEDS ORDERED: Metoclopramide Hydrochloride 10 MG/2 ML VIAL IV ONE (14:40)
[2025-06-02] MEDS ORDERED: diphenhydrAMINE hydrochloride 50 MG/ML VIAL IV ONE (14:40)
[2025-06-02 14:53] LABS: BASO # 0.0 10*3/uL (0.0-0.1); BASO % 0.5 % (0.0-1.0); EOS # 0.2 10*3/uL (0.0-0.4); EOS % 3.0 % (1.0-4.0); MEAN CELL VOLUME 93.9 fl (81.0-99.0); MEAN CORPUSCULAR HGB 29.3 pg (27.0-31.0); MEAN PLATELET VOLUME 9.4 fl (9.6-12.3); MONO # 0.8 10*3/uL (0.1-1.0); MONO % 9.6 % (3.0-9.0); NEUT # 3.9 10*3/uL (2.3-7.9); NEUT % 49.2 % (47.0-73.0); NUCLEATED RED BLOOD CELL 0.0 % (0.0-0.0); NUCLEATED RED BLOOD CELL 0.0 10*3/uL (0.0-0.0); PLATELET COUNT AUTOMATED 274 10*3/uL (130-400); RED CELL DISTRI WIDTH 12.7 % (0-14.5)
[2025-06-02 15:18] LABS: BUN 16 mg/dl (9-23); SGPT/ALT 18 U/L (5-49)
[2025-06-02] MEDS ORDERED: REGLAN10 M1 PO (16:18)
[2025-06-02] MEDS ORDERED: DICYCLOMINE HYD20 MG PO (16:18)
== END 2025-06-02 16:36 | disposition home or self-care (01) ==
LOC: ED 14:37
PROVIDERS: Emergency Medicine
DX: R10.10 Upper abdominal pain, unspecified (principal); R11.2 Nausea with vomiting, unspecified; R19.7 Diarrhea, unspecified; F17.200 Nicotine dependence, unspecified, uncomplicated; Z91.030 Bee allergy status; Z88.0 Allergy status to penicillin; Z88.8 Allergy status to other drugs, medicaments and biological substances; Z79.899 Other long term (current) drug therapy; Z98.890 Other specified postprocedural states; Z90.49 Acquired absence of other specified parts of digestive tract